=== PATIENT | male | born 1950 | race Caucasian/White ===

== ENCOUNTER 2019-02-18 14:39 | Inpatient (IN) | payer MEDICARE, OTHER ==
--- NOTE | 2019-02-18 16:20 | ED ---
Lower Extremity - HPI Summary HPI Summary: The patient is a 68 y/o M presenting to [facility] with discolorations of the toes on bilateral feet onset over the last few days. He reports that he was referred by his PCP to come here for his symptoms. He has small blueish-purple petechial spots on the right great and second toes and the left great toe. He has chronic numbness in the feet secondary to DM with neuropathy that isnt worse than usual. He denies fevers, chills, or other rashes on the body. He endorses intermittent episodes of mild CP but no palpitations. No known trauma to feet. Not currently in pain. PMHx: 4x CA, carotid surgery January 2019, aortic aneurysm, leaky valve, CAD, DVT, HLD, HTN. Former smoker, occasional EtOH, no substance use, no IV drug use. Medications reviewed. Allergies noted. - History of Current Complaint Chief Complaint: EDDiabeticProb Stated Complaint: DIABETIC/TOES ARE TURNING BLUE PER PT Time Seen by Provider: 02/18/19 15:56 Hx Obtained From: Patient Mechanism Of Injury: Unknown Onset/Duration: Still Present Severity Initially: Mild Severity Currently: Moderate Pain Intensity: 0 Pain Scale Used: 0-10 Numeric Timing: Lasting Days Location: Is Discrete @ - bilateral toes Associated Signs And Symptoms: Positive: Other - CP; Negative: chills, body rash , palpitations. Negative: Fever Aggravating Factor(s): Nothing Alleviating Factor(s): Nothing - Allergies/Home Medications Allergies/Adverse Reactions: Allergies Allergy/AdvReac Type Severity Reaction Status Date / Time RONAK Inhibitors Allergy Unknown Verified 12/09/18 11:27 Reaction Details acetaminophen Allergy Anaphylatic Verified 12/09/18 11:27 [From Darvocet-N 100] Shock meperidine [From Demerol] Allergy Nausea Verified 12/09/18 11:28 metformin Allergy Nausea Verified 12/09/18 11:27 propoxyphene Allergy Anaphylatic Verified 12/09/18 11:27 [From Darvocet-N 100] Shock simvastatin [From Zocor] Allergy Unknown Verified 12/09/18 11:27 Reaction Details Home Medications: Home Medications Insulin GLARGINE(*) [Lantus(*)] 50 units SUBCUT BEDTIME 02/18/19 [History Confirmed 02/18/19] Insulin LISPRO* [HumaLOG*] 10 units SUBCUT TID AC 02/18/19 [History Confirmed ] LORazepam TAB(*) [Ativan 0.5 MG TAB (*)] 0.5 mg PO BID PRN 02/18/19 [History Confirmed 02/18/19] Losartan TAB* [Cozaar TAB*] 50 mg PO DAILY 02/18/19 [History Confirmed 02/18/19] Metoprolol Succinate XL TAB* [Toprol XL TAB*] 50 mg PO DAILY 02/18/19 [History Confirmed 02/18/19] Mometasone NASAL (NF) [Nasonex (NF)] 2 spray BOTH NARES DAILY PRN 02/18/19 [ History Confirmed 02/18/19] Niacin ER CAP* [Niaspan ER CAP*] 500 mg PO BEDTIME 02/18/19 [History Confirmed 02/18/19] Omeprazole CAP (NF) [Prilosec CAP* 20 MG] 20 mg PO DAILY 02/18/19 [History Confirmed 02/18/19] Silodosin(NF) [Rapaflo(NF)] 8 mg PO DAILY 02/18/19 [History Confirmed 02/18/19] Tamsulosin CAP* [Flomax CAP*] 0.4 mg PO DAILY 02/18/19 [History Confirmed ] PMH/Surg Hx/FS Hx/Imm Hx Endocrine/Hematology History: Reports: Hx Diabetes Denies: Hx Anticoagulant Therapy, Hx Thyroid Disease, Hx Anemia Cardiovascular History: Reports: Hx Aneurysm, Hx Angina, Hx Coronary Artery Disease, Hx Deep Vein Thrombosis, Hx Hypercholesterolemia, Hx Hypertension, Hx Myocardial Infarction, Other Cardiovascular Problems/Disorders - BYPASS X3, aortic aneurysm, cartoid surgery Denies: Hx Pacemaker/ICD, Hx Valvular Heart Disease Respiratory History: Denies: Hx Asthma, Hx Chronic Bronchitis, Hx Chronic Obstructive Pulmonary Disease (COPD), Hx Pneumonia, Hx Sleep Apnea, Other Respiratory Problems/ Disorders - DENIES GI History: Reports: Hx Hiatal Hernia Denies: Hx Crohn's Disease, Hx Diverticulosis, Hx Gall Bladder Disease, Hx Gastroesophageal Reflux Disease, Hx Irritable Bowel, Hx Ulcer History: Reports: Hx Kidney Stones Denies: Hx Renal Disease - KIDNEY STONES Musculoskeletal History: Denies: Hx Arthritis, Hx Back Problems, Hx Gout Sensory History: Reports: Hx Contacts or Glasses Denies: Hx Hearing Aid Opthamlomology History: Reports: Hx Contacts or Glasses Neurological History: Reports: Other Neuro Impairments/Disorders - neuropathy Denies: Hx Headaches, Hx Migraine, Hx Seizures Psychiatric History: Denies: Hx Anxiety, Hx Depression, Hx Panic Disorder, Hx Post Traumatic Stress Disorder, Hx Suicide Attempt, Hx Substance Abuse - Cancer History Cancer Type, Location and Year: Family history Hx Chemotherapy: No - Surgical History Surgical History: Yes Surgery Procedure, Year, and Place: TRIPLE BYPASS , CARDIAC STENTS X3, AAA REPAIR, Hernia repair X2 Hx Anesthesia Reactions: No Infectious Disease History: No Infectious Disease History: Denies: Hx Hepatitis, Hx Human Immunodeficiency Virus (HIV), Hx Shingles, Hx Tuberculosis, Traveled Outside the [place] in Last 30 Days - Family History Known Family History: Positive: Cardiac Disease, Hypertension, Diabetes - Social History Alcohol Use: Occasionally Substance Use Type: Reports: None Smoking Status (MU): Former Smoker Review of Systems Negative: Fever, Chills Positive: Chest Pain - intermittent, mild. Negative: Palpitations Positive: Other - blue/purple spots on toes bilateral feet. Negative: Rash All Other Systems Reviewed And Are Negative: Yes Physical Exam - Summary Physical Exam Summary: Constitutional: Well-developed, Well-nourished, Alert. (-) Distressed Skin: Warm, Dry. Multiple petechiae on the bilateral toes, Multiple purple papules worst on the right great toe, Good capillary refill, No warmth, tenderness, or swelling. HENT: Normocephalic; Atraumatic Eyes: Conjunctiva normal Neck: Musculoskeletal ROM normal neck. (-) JVD, (-) Stridor, (-) Tracheal deviation Cardio: Rhythm regular, rate normal, Heart sounds normal; Intact distal pulses; Radial pulses are 2+ and symmetric. (-) Murmur Pulmonary/Chest wall: Effort normal. (-) Respiratory distress, (-) Wheezes, (-) Rales Abd: Soft, (-) tenderness, (-) Distension, (-) Guarding, (-) Rebound Musculoskeletal: (-) Edema Lymph: (-) Cervical adenopathy Neuro: Alert, Oriented x3 Psych: Mood and affect Normal Triage Information Reviewed: Yes Vital Signs On Initial Exam: Initial Vitals Temp Pulse Resp BP Pulse Ox 97.8 F 76 16 147/73 98 02/18/19 14:41 02/18/19 14:41 02/18/19 14:41 02/18/19 14:41 02/18/19 14:41 Vital Signs Reviewed: Yes Procedures - Sedation Patient Received Moderate/Deep Sedation with Procedure: No Diagnostics - Vital Signs Vital Signs Temp Pulse Resp BP Pulse Ox 02/18/19 14:41 97.8 F 76 16 147/73 98 - Laboratory Result Diagrams: 02/18/19 16:27 02/18/19 16:27 Lab Statement: Any lab studies that have been ordered have been reviewed, and results considered in the medical decision making process. - Radiology CXR Radiology Interpretation Completed By: Radiologist Summary of Radiographic Findings: Impression: No acute cardiopulmonary process by radiograph. ED physician has reviewed this imaging report. - EKG 1623 Cardiac Rate: NL - 71 bpm EKG Rhythm: Sinus Rhythm Summary of EKG Findings: An 1623 reveals sinus rhythm at 71 bpm. LBBB. No STEMI. ED physician has reviewed and interpreted this EKG. Re-Evaluation - Re-Evaluation First Eval Re-Evaluation Time: 20:00 Comment: We discussed results and plan for admission. Lower Extremity Course/Dx - Course Course Of Treatment: Patient is here with discoloration of his bilateral feet. Patient had an endarterectomy on [facility] this year. Patient has a known bowel disease cannot remember what it was. Patient's lesions look like petechiae and possible Janeway lesions. Patient had no identifiable Osler nodes. Patient has had chills with no fever. Patient has a murmur at baseline. Patient had an elevated ESR. Patient had blood culture sent. Given patient's two minor criteria for endocarditis with a rash that is consistent with it, patient is admitted to the hospital for echocardiogram in the morning. - Diagnoses Provider Diagnoses: Hypoglycemia, Petechial rash - Physician Notifications Discussed Care Of Patient With: Rj Hernandez - hospitalist Time Discussed With Above Provider: 19:55 Instructed by Provider To: Other - I discussed the patient's case with Dr. Hernandez , who accepts the patient for admission. Discharge ED - Sign-Out/Discharge Documenting (check all that apply): Patient Departure - Patient accepted for admission by Dr. Hernandez. - Discharge Plan Condition: Stable Disposition: ADMITTED TO [facility] Referrals: Lonnie Black MD [Primary Care Provider] - - Billing Disposition and Condition Condition: STABLE Disposition: Admitted to [facility] - Attestation Statements Document Initiated by Sabrina: Yes Documenting Scribe: Roxi Shahid Provider For Whom Sabrina is Documenting (Include Credential): Dr. Brandon Verde MD Scribe Attestation: Roxi Meraz, scribed for Dr. Brandon Verde MD on 02/18/19 at 2112. Scribe Documentation Reviewed: Yes Provider Attestation: The documentation as recorded by the Roxi wagner accurately reflects the service I personally performed and the decisions made by me, Dr. Brandon Verde MD Status of Scribe Document: Viewed
[2019-02-18 16:42] LABS: ABS Basophils 0.1 10^3/ul (0-0.2); ABS Eosinophils 0.3 10^3/ul (0-0.6); ABS Lymphocytes 0.8 10^3/ul (1.0-4.8); ABS Monocytes 0.4 10^3/ul (0-0.8); ABS Neutrophils 6.1 10^3/ul (1.5-7.7); Eosinophil % 3.8 %; Hematocrit 34 % (42-52); Hemoglobin 11.8 g/dL (14.0-18.0); Mean Corpuscular HGB Conc 35 g/dL (31-36); Mean Corpuscular Hemoglobin 29 pg (27-31); Mean Corpuscular Volume 83 fL (80-94); Mean Platelet Volume 8.4 fL (7.4-10.4); Platelet Count 265 10^3/uL (150-450); Red Blood Count 4.08 10^6 /uL (4.18-5.48); Red Cell Distribution Width 17 % (10-15); White Blood Count 7.6 10^3/uL (3.5-10.8)
[2019-02-18 16:48] LABS: INR 0.97 (0.82-1.09)
[2019-02-18 17:02] LABS: Albumin 3.6 g/dL (3.2-5.2); Albumin/Globulin Ratio 1.2 (1-3); BUN/Creatinine Ratio 23.1 (8-20); Calcium 8.9 mg/dL (8.6-10.3); EGFR African American 40.4 (>60); EGFR Non-African American 33.4 (>60); Globulin 2.9 g/dL (2-4); Potassium 4.4 mmol/L (3.5-5.0); Total Bilirubin 0.5 mg/dL (0.2-1.0); Total Protein 6.5 g/dL (6.4-8.9); Troponin I 0.02 ng/mL (<0.03)
[2019-02-18 19:30] LABS: Erythrocyte Sed Rate 58 mm/Hr (0-19)
[2019-02-18] MEDS ORDERED: Vancomycin(*) 1,500 MG in NS 0.9% 250 ML* 250 ML IVPB ONE (21:30)
[2019-02-18] MEDS ORDERED: Piperacillin/Tazobac ADVAN(*) 3.375 GM in NS 0.9% 100 ML* 100 ML IVPB ONE (21:31)
[2019-02-18] MEDS ORDERED: Acetaminophen TAB* 325 MG PO PRN (21:32)
[2019-02-18] MEDS ORDERED: Ondansetron INJ* 2 MG/ML VIAL IV PRN (21:32)
[2019-02-18] MEDS ORDERED: LORazepam TAB(*) 0.5 MG PO PRN (21:35)
[2019-02-18] MEDS ORDERED: Fluticasone NASAL SPRAY 50MCG* 16 gm SPRAY BTL BOTH NARES PRN (21:35)
[2019-02-18] MEDS ORDERED: Dextrose 50% VIAL 50 ml IV PUSH PRN (21:37)
[2019-02-18] MEDS ORDERED: Vancomycin per Pharmacy* NOTE FOLLOW UP SCH (22:00)
[2019-02-18] MEDS ORDERED: Zosyn per Pharmacy* NOTE FOLLOW UP SCH (22:00)
[2019-02-18 22:24] LABS: Troponin I 0.03 ng/mL (<0.03)
[2019-02-18 22:38] LABS: Urine Appearance Cloudy; Urine Bilirubin Negative (Negative); Urine Blood Negative (Negative); Urine Color Yellow; Urine Glucose 1+(50 mg/dL) (Negative); Urine Ketones Negative (Negative); Urine Nitrite Negative (Negative); Urine Protein 2+(100 mg/dL) (Negative); Urine Specific Gravity 1.011 (1.010-1.030); Urine Urobilinogen Negative (Negative)
[2019-02-18 22:49] LABS: Urine Bacteria Absent (Absent); Urine Red Blood Cell 1+(3-5/hpf) (Absent); Urine White Blood Cell 3+(>20/hpf) (Absent)
--- NOTE | 2019-02-18 23:21 | HP ---
HISTORY AND PHYSICAL: DATE OF ADMISSION: 02/18/19 PRIMARY CARE PHYSICIAN: Dr. Black. PROVIDER: Jovanna Diaz NP ATTENDING PHYSICIAN: Dr. Hernandez.* (DICTATED BY JOVANNA DIAZ NP) CHIEF COMPLAINT: Red spots on his toes. HISTORY OF PRESENT ILLNESS: This is a 68-year-old male with past medical history significant for diabetes type 2 with neuropathy, RI x4, and DVT who came to the emergency room per suggestion of his PCP due to red spots on his toes. On 01/01/19, the patient had underwent a right endarterectomy. Since then he has had 3 to 4 headaches which is unusual. His appetite in the past week has been poor. He has become short of breath when bending over. Other significant symptoms include left-sided chest pain that is intermittent that he describes as pinpricks with no other radiating pain, flushing, or sweating though he says that symptom has been present since his first heart attack. He also reports feeling lightheaded with bending, turning, or walking any short distance; however, that has been present since before his endarterectomy. Also of note, the patient has seen Dr. Wright in the office recently for BPH and pain in his urine. Urine had been cloudy, strong in odor, and he had been urinating frequently. A urinalysis had been performed and Dr. Wright had called in an antibiotic for him today, which he had not been able to shrimp picker prior to coming to the emergency room. In the emergency room, he had his blood drawn and chest x-ray performed. When I evaluated him at the bedside, he was sitting up in the bed in no acute distress. PAST MEDICAL HISTORY: Diabetes type 2 with neuropathy, RI x4, aortic aneurysm, coronary artery disease, arthritis, Lyme disease, "leaky valve though he is unsure as to which one", DVT, hyperlipidemia, hypertension, hiatal hernia, inguinal hernia, umbilical hernia, kidney stones, BPH, GERD. PAST SURGICAL HISTORY: Inguinal hernia repair x2, right endarterectomy, AAA repair, triple bypass, 3 stentings. HOME MEDICATIONS: 1. Lorazepam 0.5 mg p.o. b.i.d. p.r.n. 2. Mometasone 2 sprays both nares daily p.r.n. 3. Amlodipine 5 mg p.o. daily. 4. Paroxetine 20 mg p.o. daily. 5. Bupropion XL 3000 mg p.o. daily. 6. Silodosin 8 mg p.o. daily. 7. Tamsulosin 0.4 mg p.o. daily. 8. Fish oil 1 cap p.o. daily. 9. Multivitamin 1 cap p.o. daily. 10. Insulin lispro 10 units subcutaneously t.i.d. a.c. 11. Insulin glargine 50 units subcu at bedtime. 12. Metoprolol succinate 50 mg p.o. daily. 13. Losartan 50 mg p.o. daily. 14. Clopidogrel 75 mg p.o. daily. 15. Atorvastatin 40 mg p.o. daily. 16. Aspirin 81 mg p.o. daily. ALLERGIES: RONAK INHIBITORS, MEPERIDINE, METFORMIN, PROPOXYPHENE, and SIMVASTATIN. FAMILY HISTORY: Father had lung cancer. Two sisters, one had lung cancer and one had stroke. His mother had heart disease. SOCIAL HISTORY: Quit smoking 20 years ago. Denies any alcohol or recreational substance use. 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 He is and has 2 children. REVIEW OF SYSTEMS: A 12-point system review was performed which was positive for urinary frequency, pain, strong odor, and cloudy urine. Also positive for shortness of breath with bending over; lightheadedness with bending, turning, and walking short distances; headaches; intermittent pinpricky chest pain; feeling more cold in the past few months; poor appetite within the past week. Pertinent negatives: No nausea or vomiting or diarrhea. PHYSICAL EXAMINATION GENERAL: This is a well-developed, obese gentleman seen staying up in bed, in no acute distress. VITAL SIGNS: 97.8 Fahrenheit, 71 pulse, 13 resp, 95% oxygen on room air, and 155/95 blood pressure. HEENT: Eyes; conjunctivae pink and moist. Scleral icterus noted. ENT: Oropharynx clear. Mucous membranes moist. NECK: Supple. RESPIRATORY: Lung sounds clear throughout bilaterally on room air. CARDIAC: S1 and S2 present. Heart rate regular, stenotic murmur heard equally in the second intercoastal to bilateral sternal borders. Positive carotid bruits bilaterally. No gallops or rubs appreciated. ABDOMEN: Large, soft, nontender, and nondistended with positive bowel sounds x4. MUSCULOSKELETAL: No clubbing of the digits; however, toes to bilateral feet have small areas of petechiae. First 3 toes on the right are deep red. SKIN: Other than toes as mentioned above, no rashes or open areas appreciated. NEUROLOGIC: No focal deficits. Neuropathy to left great toe and right toes 1 through 3. PSYCH: Alert and oriented x3. Thought content organized. LABORATORY DATA: RBC 4.08, hemoglobin 11.8, hematocrit 34, RDW 17. Sodium 31 , chloride 97, BUN 46, creatinine 1.99, BUN and creatinine ratio 23.1, glucose 369, B- natriuretic peptide 110, troponin 0.02. Reflexive culture of urine done on 02/11/19 showed positive for Enterococcus faecalis. DIAGNOSTIC STUDIES: EKG showed sinus rhythm with T-waves, depression in multiple leads and right bundle branch block. Chest x-ray showed no acute cardiopulmonary process by radiograph. ASSESSMENT AND PLAN: My impression is this is a 68-year-old male with the past medical history significant for recent endarterectomy, diabetes type 2, and myocardial infarction x4 who is admitted on 02/18/19 for endocarditis. 1. Endocarditis. Awaiting blood cultures; however, due to symptomatology, recent endarterectomy, and presence of Janeway spots to his bilateral toes we are treating this as endocarditis. I have ordered vancomycin and Zosyn to cover not only for the endocarditis but also for his urinary tract infection. We will place the patient on telemetry monitoring and do an echocardiogram in the a.m. 2. Urinary tract infection. As detected by Dr. Wright in the office, urine is growing Enterococcus faecalis. We will treat with a mixture of Zosyn and vancomycin that we are giving him for his endocarditis. The patient is symptomatic. 3. Diabetes type 2. Blood sugars were elevated in the ER. We will order fingersticks a.c. and h.s. to continue his Lantus with sliding scale coverage with Lispro insulin. 4. History of coronary artery disease and myocardial infarction x4. The patient is not having any symptoms of acute coronary syndrome; however, troponin is 0.02, and we will continue to trend this. EKG shows no ST elevation. Continue baby aspirin, clopidogrel, atorvastatin, and metoprolol. 5. Hypertension. Blood pressures in the emergency room have been elevated in the 140s to 150s consistently. We will continue amlodipine, losartan, and metoprolol. Depending on how he is doing tomorrow, I would recommend titration of medication. 6. Hyperlipidemia. Continue atorvastatin. 7. Depression and anxiety. Continue bupropion and paroxetine. Continue lorazepam. 8. Benign prostatic hyperplasia. Continue silodosin and tamsulosin. 9. DVT prophylaxis. I have ordered Lovenox. 10. Code status is full code. DISPOSITION: Admit OBV to [facility]. CONDITION: Guarded. TIME SPENT: Time spent on the patient 60 minutes with half of that spent face- to- face. JOVANNA DIAZ, SENIOR CONSTRUCTION MANAGER [id number]/CPS #: [id number] MTDD
[2019-02-18] MEDS: NS 0.9% 1000 ML** 1,000 ML IV SCH (23:55)
[2019-02-19] MEDS: Enoxaparin(*) 40 MG/0.4 ML SYR SUBCUT SCH ×2 (00:06→22:10)
[2019-02-19] MEDS: ZOSYN 3.375 GM Q8H per EXTENDED INFUSION IVPB SCH ×4 (01:26→09:04)
[2019-02-19 01:31] LABS: Troponin I 0.03 ng/mL (<0.03)
[2019-02-19 04:28] LABS: ABS Eosinophils 0.4 10^3/ul (0-0.6); ABS Lymphocytes 1.5 10^3/ul (1.0-4.8); ABS Monocytes 0.5 10^3/ul (0-0.8); ABS Neutrophils 4.5 10^3/ul (1.5-7.7); Eosinophil % 5.3 %; Hematocrit 30 % (42-52); Hemoglobin 11.1 g/dL (14.0-18.0); Lymphocyte % 22.1 %; Mean Corpuscular HGB Conc 37 g/dL (31-36); Mean Corpuscular Hemoglobin 31 pg (27-31); Mean Corpuscular Volume 85 fL (80-94); Mean Platelet Volume 8.1 fL (7.4-10.4); Nucleated Red Blood Cells % 0.3; Platelet Count 248 10^3/uL (150-450); Red Blood Count 3.53 10^6 /uL (4.18-5.48); Red Cell Distribution Width 16 % (10-15); White Blood Count 6.9 10^3/uL (3.5-10.8)
[2019-02-19 04:42] LABS: BUN/Creatinine Ratio 20.6 (8-20); Calcium 8.5 mg/dL (8.6-10.3); EGFR African American 35.4 (>60); EGFR Non-African American 29.3 (>60)
[2019-02-19 04:49] LABS: Potassium 4.1 mmol/L (3.5-5.0)
[2019-02-19 04:52] LABS: Troponin I 0.03 ng/mL (<0.03)
[2019-02-19] MEDS ORDERED: Perflutren Lipid Microsphere* 3 ML VIAL ONE (08:35)
[2019-02-19] MEDS ORDERED: Losartan TAB* 25 MG PO SCH (09:00)
[2019-02-19 09:01] LABS: C Reactive Protein 4.07 mg/L (<8.01)
[2019-02-19] MEDS: amLODIPine TAB* 5 MG PO SCH (09:01)
[2019-02-19] MEDS: BuPROPion XL* 300 MG TAB.XL PO SCH (09:01)
[2019-02-19] MEDS: PARoxetine HCL TAB* 20 MG PO SCH (09:01)
[2019-02-19] MEDS: Metoprolol Succinate XL TAB* 50 MG PO SCH (09:01)
[2019-02-19] MEDS: Multivitamins/Minerals TAB PO SCH (09:01)
[2019-02-19] MEDS: Clopidogrel TAB* 75 MG PO SCH (09:01)
[2019-02-19] MEDS: Tamsulosin CAP* 0.4 MG PO SCH (09:01)
[2019-02-19] MEDS: Atorvastatin* 40 MG TAB PO SCH (09:01)
[2019-02-19] MEDS: Aspirin 81 mg CHEW TAB* 81 MG TAB.CHEW PO SCH (09:01)
[2019-02-19] MEDS: Insulin LISPRO* 1 UNITS UNIT SUBCUT SCH ×4 (09:02→22:10)
[2019-02-19] MEDS: SILODOSIN 8 MG PO SCH (09:03)
--- NOTE | 2019-02-19 11:17 | ECHO ---
*[facility]* [place] [address] Fax #: [phone] Transthoracic Echocardiogram Patient: Will Martinez : 1950 Study Date: 02/19/2019 Age: 68 Gender: M HR: 72 bpm Height: 64 in /162.6 cm BSA: 2.04 m^2 Weight: 219.5 lb /99.8 kg BMI: 37.8 kg/m^2 *Special Education Curriculum Specialist: * Lynne Márquez RDCS RN *Referring Physician: * Hattie Diaz *Reading Physician: * Don Bahena MD Indications: Endocarditis Acute/subacute bacterial. History: Coronary artery disease. OH x 4. DVT. AAA repair. Right endarterectomy. Risk factors: Hypertension. Diabetes mellitus. Dyslipidemia. Labs, prior tests, procedures, and surgery: Coronary artery bypass grafting. Conclusions Summary: - Left ventricle: The cavity size is normal. Septal wall thickness is moderately increased. Systolic function is mildly reduced. The estimated ejection fraction is 45-50%. - Regional wall motion abnormality: Akinesis of the basal inferior myocardium; severe hypokinesis of the basal-mid inferolateral myocardium; moderate hypokinesis of the basal inferoseptal myocardium; mild hypokinesis of the mid inferoseptal, mid-apical inferior, and apical septal myocardium. - Right ventricle: The cavity size is normal. Systolic function is normal. - Ventricular septum: Ventricular septal wall motion has a postoperative appearance. - Left atrium: The atrium is mildly dilated. - Aortic valve: The findings are consistent with moderate stenosis. There is mild regurgitation. The peak systolic velocity is 3 m/sec. The mean systolic gradient is 23.0 mm Hg. The valve area by the velocity-time integral method is 1.07 cm^2. - Pulmonary arteries: Systolic pressure can not be accurately estimated. - No obvious endocarditis on fair quality transthoracic imaging. Recommendations: Compared to prior study from 12/2018, more wall segments were noted to be dysfunctional but this may have been related to definity use on this study. Study data: Transthoracic echocardiogram. Procedure: Transthoracic echocardiography was performed. Image quality was fair. The study was technically limited due to body habitus. Intravenous Definity 2 ml was administered to enhance endocardial borders. Complete 2D, spectral Doppler, and color flow Doppler. Location: Bedside. Patient status: Inpatient. Patient room number: 441-01. Rhythm: Normal sinus rhythm with PVCs and PACs. Findings Left ventricle: The cavity size is normal. Septal wall thickness is moderately increased. Systolic function is mildly reduced. The estimated ejection fraction is 45-50%. Regional wall motion abnormalities: Akinesis of the basal inferior myocardium; severe hypokinesis of the basal-mid inferolateral myocardium; moderate hypokinesis of the basal inferoseptal myocardium; mild hypokinesis of the mid inferoseptal, mid-apical inferior, and apical septal myocardium. The remaining myocardial segments have high normal wall motion raising the LVEF Doppler parameters are consistent with abnormal left ventricular relaxation (grade 1 diastolic dysfunction). Right ventricle: The cavity size is normal. Systolic function is normal. Ventricular septum: Ventricular septal wall motion has a postoperative appearance. Left atrium: The atrium is mildly dilated. Right atrium: Not well visualized. The atrium is mildly dilated. Mitral valve: The mitral valve annulus appears calcified. The leaflets are mildly thickened. There is no evidence of a vegetation. There is no evidence of stenosis. There is mild regurgitation. Aortic valve: The valve is trileaflet. The leaflets are moderately thickened and moderately calcified. There is no evidence of a vegetation. The findings are consistent with moderate stenosis. There is mild regurgitation. Tricuspid valve: The leaflets are normal thickness. There is no evidence of a vegetation. There is no evidence of stenosis. There is trace regurgitation. Pulmonic valve: The valve is structurally normal. There is no evidence of a vegetation. There is no evidence of stenosis. There is trace regurgitation. Aorta: Ascending aorta: The ascending aorta is not dilated. Aortic arch: The aortic arch is not dilated. The aortic root appears normal. Pericardium: There is no pericardial effusion. Pulmonary arteries: The main pulmonary artery is normal-sized. Systolic pressure can not be accurately estimated. Systemic veins: Inferior vena cava: The vessel is mildly dilated. There is (< 50%) respiratory change in the IVC dimension. Measurements Left ventricle Value Ref Aortic valve Value Ref HUANG, LAX 4.4 cm 4.2 - 5.8 Cheli diam, ED 1.9 cm ---- ESD, LAX 3.9 cm 2.5 - 4.0 Cheli diam/bsa, ED 0.9 cm/m^2 ---- FS, LAX (L) 11 % 25 - 43 Peak v, S 3 m/sec ---- PW, ED 0.8 cm 0.6 - 1.0 VTI, S 65.2 cm ---- IVS/PW, ED 1.78 Mean grad, S 23.0 mm Hg ---- E', lat cheli, TDI (L) 8.7 cm/sec >=10.0 Peak grad, S 37.0 mm Hg - --- E/e', lat cheli, 11 LVOT/AV, VTI ratio 0.31 ---- TDI REGLA, VTI 1.07 cm^2 ---- E', med cheli, TDI (L) 6.3 cm/sec >=7.0 REGLA, Vmax 1.12 cm^2 - --- E/e', med cheli, 15 AR peak v 3.63 m/sec ---- TDI AR PHT 569 ms ---- E', avg, TDI 7.5 cm/sec AR peak grad 53 mm Hg ---- E/e', avg, TDI 12 <=14 Mitral valve Value Ref LVOT Value Ref Peak E 0.93 m/sec ---- Diam, S 2.10 cm Peak A 1.26 m/sec ---- Area 3.5 cm^2 Decel time 296 ms ---- Peak mily, S 0.97 m/sec PHT 111 ms ---- VTI, S 20.1 cm Mean grad, D 2.0 mm Hg ---- Mean grad, S 2 mm Hg Peak grad, D 7.0 mm Hg ---- SV 62 ml Peak E/A ratio 0.7 ---- SV/bsa 30 ml/m^2 MVA, PHT 2.0 cm^2 ---- Ventricular septum Value Ref Pulmonic valve Value Ref IVS, ED (H) 1.4 cm 0.6 - 1.0 Peak v, S 1.44 m/sec ---- Peak grad, S 8.0 mm Hg ---- Right ventricle Value Ref HUANG, LAX 3.0 cm Aortic root Value Ref HUANG minor ax, A4C 2.9 cm 1.9 - 3.5 Root diam 2.9 cm <4.2 mid Ascending aorta Value Ref Left atrium Value Ref AAo AP diam, S 3.3 cm ---- AP dim, ES 3.80 cm 3.00 - 4.00 Aortic arch Value Ref ML dim, A4C 4.5 cm Arch diam 2.8 cm ---- SI dim, A4C 5.5 cm Vol/bsa, ES, 1-p 29 ml/m^2 12 - 37 Decending aorta Value Ref A4C Yolanda peak mily 1.44 m/sec ---- Vol/bsa, ES, A/L 32 ml/m^2 16 - 34 Inferior vena cava Value Ref Right atrium Value Ref Diam 2.3 cm ---- ML dim, ES, A4C 4.1 cm 2.6 - 4.4 SI dim, ES, A4C (H) 5.6 cm 3.4 - 5.3 Estimated RAP 15 mm Hg Legend: (L) and (H) aaron values outside specified reference range. Prepared and electronically signed by Don Bahena MD 02/19/2019 11:15
--- NOTE | 2019-02-19 12:29 | CONS ---
CONSULTATION REPORT: DATE OF CONSULT: 02/19/19 REQUESTING PHYSICIAN: Dr. Ruby. CONSULTING SERVICE: Infectious Disease. REASON FOR CONSULT: Elevated sedimentation rate, heart murmur, rash on his toes. IMPRESSION: 1. Petechiae on the tips of the bilateral great toes and apparently a blackish discoloration, which has now resolved. These are not Janeway lesions. He does not have splinter hemorrhage or subconjunctival hemorrhage. These could be stigmata of endocarditis or embolization from intravascular process. They would not necessarily have to be infectious. He has not had an acute or subacute prodrome to suggest infection, his CRP is 4, and he has had no fever here. He does have what looks like worsening renal function, baseline in November of .7, his creatinine now is 2.2. This could also be from local trauma to the tips of the toes in the setting of mild vascular disease. 2. Diabetes with neuropathy. 3. Vascular disease, recent endarterectomy and decreased dorsalis pedis pulse on the right. 4. Coronary artery disease, history of aortic aneurysm, and valvular disease. RECOMMENDATIONS: Stop the Zosyn. Continue vancomycin while awaiting blood cultures and echocardiogram is pending. If the blood cultures are negative, endocarditis drops essentially off the list. Other considerations are emboli in the setting of vascular disease and we would check an YOAN. HISTORY OF PRESENT ILLNESS: This is a 68-year-old man with coronary artery disease, peripheral vascular disease, recent endarterectomy, recent treatment for urinary tract infection due to enterococcus as an outpatient; has been off antibiotics for over a week now and was noted to have some reddish spots on his toes and some black discoloration of the toes. Because of the changes on his toes, he came to the hospital yesterday. He has been afebrile here. CRP is 4. Sed rate is 50. Recent treatment for prostatitis as an outpatient; he cannot remember which antibiotic, but took it for a couple of weeks. He has been off it for a week. He was to have restarted it recently per Dr. Wright's direction, but he has not done that yet. His white count here was 7. His initial creatinine was 1.9. Today, it is 2.2. Urinalysis showed leukocyte esterase and white cells, no blood. A urine culture from 02/11/19 grew enterococcus. His blood and urine cultures here are pending. He does not have any pain in any place including his toes, though he does have some neuropathy. PAST MEDICAL HISTORY: 1. Coronary artery disease and history of DE. 2. Aortic aneurysm. 3. Diabetes type 2, complicated by neuropathy. 4. Osteoarthritis. 5. Valvular heart disease. 6. DVT. 7. Hyperlipidemia. 8. Hypertension. 9. Hiatal hernia. 10. Inguinal hernia. 11. Umbilical hernia. 12. Nephrolithiasis. 13. Benign prostatic hypertrophy. 14. Gastroesophageal reflux disease. PAST SURGICAL HISTORY: 1. Status post right inguinal hernia repair, twice. 2. Status post right carotid endarterectomy. 3. Abdominal aortic aneurysm repair. 4. Coronary artery bypass grafting. 5. PCI. ALLERGIES: RONAK INHIBITOR, MEPERIDINE, METFORMIN, PROPOXYPHENE, SIMVASTATIN. MEDICATIONS: 1. Tylenol. 2. Amlodipine. 3. Aspirin. 4. Lipitor. 5. Bupropion. 6. Plavix. 7. Enoxaparin. 8. Fluticasone nasal spray. 9. Insulin glargine. 10. Losartan. 11. Metoprolol. 12. Zosyn 3.375 g IV every 8 hours. 13. Rapaflo. 14. Tamsulosin. 15. Vancomycin 1500 mg daily. SOCIAL HISTORY: He is retired from [employer] in [employer]. Lives with his . He is a past smoker. FAMILY HISTORY: Father with lung cancer. Mother had coronary artery disease. REVIEW OF SYSTEMS: All negative, except as noted above to a 12-point review. PHYSICAL EXAM: Vital Signs: Temperature is 36.3, heart rate 78, respiratory rate 16, blood pressure 146/60, oxygen saturation 97% on room air. In general, he is awake, not in distress. Neurologic: He is oriented x3, follows all commands. Sensation is decreased to light touch in both feet. HEENT: There is no conjunctival hemorrhage. Oropharynx without lesions. Neck is supple without mass. Heart is regular rate and rhythm with systolic murmur. Lungs are clear to auscultation. Abdomen: Soft, nontender, nondistended. There is no rebound. Skin: There is no rash or splinter hemorrhage. There are petechiae on the bilateral tips of the great toes and second toes. Musculoskeletal: There is no spine tenderness to palpation or joint synovitis. Vascular: There is 2+ right dorsalis pedis; on the left I cannot palpate the dorsalis pedis, but both feet are warm with brisk capillary refill. LABORATORY DATA: White blood cell count 6, hemoglobin 11, platelets 248. Creatinine is 2.2. CRP 4. Please see impression and recommendations outlined above, which I have discussed with Dr. Ruby. [id number]/[facility] #: [id number] [facility] CENTERClarissa
[2019-02-19] MEDS: NS 0.9% 1000 ML** 1,000 ML IV SCH (12:43)
[2019-02-19] MEDS ORDERED: Vancomycin(*) 1,500 MG in NS 0.9% 250 ML* 250 ML IVPB SCH (15:00)
--- NOTE | 2019-02-19 16:54 | PN ---
Subjective Date of Service: 02/19/19 Interval History: Pt feels well, denies pain Objective Active Medications: Acetaminophen (Tylenol Tab*) 650 mg PO Q4H PRN PRN Reason: MILD PAIN or TEMP > 100.4 Amlodipine Besylate (Norvasc Tab*) 5 mg PO DAILY [facility] Last Admin: 02/19/19 09:01 Dose: 5 mg Aspirin (Aspirin 81 Mg Chew Tab*) 81 mg PO DAILY [facility] Last Admin: 02/19/19 09:01 Dose: 81 mg Atorvastatin Calcium (Lipitor*) 40 mg PO DAILY [facility] Last Admin: 02/19/19 09:01 Dose: 40 mg Bupropion HCl (Bupropion Xl*) 300 mg PO DAILY [facility] Last Admin: 02/19/19 09:01 Dose: 300 mg Clopidogrel Bisulfate (Plavix Tab*) 75 mg PO DAILY [facility] Last Admin: 02/19/19 09:01 Dose: 75 mg Dextrose (Dextrose 50% Vial 50 Ml*) 25 ml IV PUSH .FOR FS < 60 - SS PRN PRN Reason: FS < 60 Enoxaparin Sodium (Lovenox(*)) 40 mg SUBCUT Q24H [facility] Last Admin: 02/19/19 00:06 Dose: 40 mg Fluticasone Propionate (Flonase Nasal [place] 50mcg*) 2 spray BOTH NARES DAILY PRN PRN Reason: Allergy Symptoms Sodium Chloride (Ns 0.9% 1000 Ml) 1,000 mls @ 75 mls/hr IV PER RATE [facility] Last Admin: 02/19/19 12:43 Dose: 75 mls/hr Vancomycin HCl 1,500 mg/ (Sodium Chloride) 250 mls @ 166.667 mls/hr IVPB Q24H [facility] Last Admin: 02/19/19 15:20 Dose: 166.667 mls/hr Insulin Glargine (Lantus(*)) 50 units SUBCUT BEDTIME [facility] Insulin Human Lispro (Humalog*) 0 units SUBCUT ACHS [facility]; Protocol Last Admin: 02/19/19 12:41 Dose: 12 units Lorazepam (Ativan Tab(*)) 0.5 mg PO BID PRN PRN Reason: ANXIETY Losartan Potassium (Cozaar Tab*) 50 mg PO DAILY [facility] Last Admin: 02/19/19 09:01 Dose: 50 mg Metoprolol Succinate (Toprol Xl Tab*) 50 mg PO DAILY [facility] Last Admin: 02/19/19 09:01 Dose: 50 mg Multivitamins/Minerals (Theragran/Minerals Tab*) 1 tab PO DAILY [facility] Last Admin: 02/19/19 09:01 Dose: 1 tab Ondansetron HCl (Zofran Inj*) 4 mg IV Q4H PRN PRN Reason: NAUSEA/VOMITING Paroxetine HCl (Paxil Tab*) 20 mg PO DAILY [facility] Last Admin: 02/19/19 09:01 Dose: 20 mg Pharmacy Consult (Vancomycin Per Pharmacy*) 1 note FOLLOW UP .VANC PER PHARMACY [facility]; Protocol Pharmacy Profile Note (Vancomycin Trough Check) 1 note FOLLOW UP 1430 ONE Stop: 02/21/19 14:31 Silodosin (Rapaflo(Nf)) 8 mg PO DAILY [facility] Last Admin: 02/19/19 09:03 Dose: Not Given Tamsulosin HCl (Flomax Cap*) 0.4 mg PO DAILY [facility] Last Admin: 02/19/19 09:01 Dose: 0.4 mg Vital Signs - 8 hr 02/19/19 02/19/19 11:11 15:15 Temperature 97.2 F 98.2 F Pulse Rate 78 86 Respiratory 18 18 Rate Blood Pressure 118/53 130/66 (mmHg) O2 Sat by Pulse 95 95 Oximetry Oxygen Devices in Use Now: None Appearance: 68 yo m in nAD, aAOx3 Eyes: No Scleral Icterus, PERRLA Ears/Nose/Mouth/Throat: NL Teeth, Lips, Gums, Mucous Membranes Moist Neck: NL Appearance and Movements; NL JVP, Trachea Midline Respiratory: Symmetrical Chest Expansion and Respiratory Effort, Clear to Auscultation Cardiovascular: RRR, - - 3/6 TIM Abdominal: NL Sounds; No Tenderness; No Distention Lymphatic: No Cervical Adenopathy Extremities: No Edema, No Clubbing, Cyanosis Skin: No Nodules or Sclerosis, - - very faint petechiae on tips of all toes and dorsal aspect of 1st toes b/l Neurological: Alert and Oriented x 3, NL Muscle Strength and Tone Result Diagrams: 02/19/19 04:19 02/19/19 04:19 Microbiology and Other Data: Microbiology 02/18/19 16:27 Aerobic Blood Culture - Preliminary Blood Venous No Growth Day 1 Anaerobic Blood Culture - Preliminary No Growth Day 1 02/18/19 16:27 Aerobic Blood Culture - Preliminary Blood Venous No Growth Day 1 Anaerobic Blood Culture - Preliminary No Growth Day 1 Assess/Plan/Problems-Billing Assessment: 68 yo m s/p L CEA (01/01/19), mod-severe (under the care of Dr. Haywood), BPH (dx with enterococcus UTI 02/11/19, by Dr. Wright), DM2 -insulin dependent noted cold and blue toe tips on 02/18/19, called his MD who recommended for pt to come to ED - Patient Problems (1) Petechiae Comment: Very mild petechie on tips of all the toes and dorsal aspect of both 1st toes.As per pt's his toes "were blue" when he called his PCP. Denies pain , or feeling cold at the time and his toes were nevewr blue before. differential includes: trauma, vaculitis, Raynauld's, endocarditis. Appreciate ID's consult-awaiting blood cx, but endocarditis less likely. YOAN's checked and are WNL will check ANCA, SHELLY . (2) Acute kidney injury Comment: on CKD stage 3 with creat at 1.7 baseline cont iVF stop Zosyn, monitor Renal US consistent with medical renal disease (3) Diabetes Comment: uncontroled cont ISS, increase Lantus from 50 to 60 U QHS (4) UTI (urinary tract infection) Comment: E. faecalis noted on urine cx 02/11/19 will cont Vanc for now (5) DVT prophylaxis Comment: Lovenox Status and Disposition: OBV changed to inpatient, due to worsening renal failure pt will need to stay another day
[2019-02-19] MEDS ORDERED: Insulin GLARGINE(*) 1 UNITS UNIT SUBCUT SCH (23:00)
[2019-02-20] MEDS: NS 0.9% 1000 ML** 1,000 ML IV SCH (06:19)
[2019-02-20 07:05] LABS: BUN/Creatinine Ratio 18.4 (8-20); Calcium 8.6 mg/dL (8.6-10.3); EGFR African American 47.2 (>60); Potassium 3.8 mmol/L (3.5-5.0)
[2019-02-20] MEDS: Metoprolol Succinate XL TAB* 50 MG PO SCH (08:31)
[2019-02-20] MEDS: Tamsulosin CAP* 0.4 MG PO SCH (08:31)
[2019-02-20] MEDS: Aspirin 81 mg CHEW TAB* 81 MG TAB.CHEW PO SCH (08:31)
[2019-02-20] MEDS: Atorvastatin* 40 MG TAB PO SCH (08:31)
[2019-02-20] MEDS: PARoxetine HCL TAB* 20 MG PO SCH (08:31)
[2019-02-20] MEDS: Multivitamins/Minerals TAB PO SCH (08:31)
[2019-02-20] MEDS: Clopidogrel TAB* 75 MG PO SCH (08:31)
[2019-02-20] MEDS: amLODIPine TAB* 5 MG PO SCH (08:31)
[2019-02-20] MEDS: Insulin LISPRO* 1 UNITS UNIT SUBCUT SCH ×2 (08:32→12:23)
[2019-02-20] MEDS: SILODOSIN 8 MG PO SCH (08:41)
[2019-02-20] MEDS: BuPROPion XL* 300 MG TAB.XL PO SCH (08:41)
[2019-02-20 08:55] VITALS: BP 160/67
[2019-02-20] MEDS ORDERED: Loperamide CAP* 2 MG PO PRN (11:34)
--- NOTE | 2019-02-20 14:58 | DS ---
CC: Dr. Black; Dr. Moore; Dr. Haywood* DISCHARGE SUMMARY: DATE OF ADMISSION: 02/18/19 DATE OF DISCHARGE: 02/20/19 PRIMARY CARE PROVIDER: Dr. Black. DISPOSITION AT DISCHARGE: Home. CONDITION ON DISCHARGE: Stable. DISCHARGE DIAGNOSES: 1. Petechiae on bilateral toes, endocarditis ruled out. 2. Acute kidney injury on top of chronic renal insufficiency that is improving. SECONDARY DIAGNOSIS: History of enterococcus urinary tract infection, treated by Dr. Wright with ampicillin. The patient is not sure if he started taking the medication or not, but he is instructed to restart it if he has not done yet as previously prescribed by the urology office. DISCHARGE MEDICATIONS: The remaining medications are unchanged and include: 1. Lorazepam 0.5 mg b.i.d. p.r.n. 2. Bupropion XL 300 mg daily. 3. Rapaflo 8 mg daily. 4. Flomax 0.4 mg daily. 5. Paxil 20 mg daily. 6. Omeprazole 20 mg daily. 7. Hutchins-3 fatty acids 1 capsule daily. 8. Niaspan ER 500 mg at bedtime. 9. Nasonex nasal spray 2 sprays both nostrils daily. 10. Toprol-XL 50 mg daily. 11. Cozaar 50 mg daily. 12. Insulin lispro 10 units with each meal as previously taken. 13. Plavix 75 mg daily. 14. Lipitor 40 mg daily. 15. Aspirin 81 mg daily. 16. Amlodipine 5 mg daily. 17. Insulin glargine 50 units twice a day. 18. Ampicillin as previously prescribed by Dr. Wright. CONSULTATION DURING THE HOSPITAL STAY: Included Dr. Moore from Infectious Diseases. LABORATORY DATA AND STUDIES PERFORMED DURING THE HOSPITAL STAY: Included on , white blood cell count of 6.9, hemoglobin of 11.0, hematocrit of 30, platelets of 248. On 02/20/19, sodium of 139, potassium 3.8, chloride 108, carbon dioxide 24, BUN 32, creatinine 1.74. Microbiology tests showing blood cultures that were negative by the time of discharge. Transthoracic echocardiogram obtained on 02/19/19 showed EF of 45% to 50% with regional wall motion abnormality, moderate hypokinesis of the basal inferoseptal myocardium and mild hypokinesis of the mid inferoseptal, mid apical inferior and apical septal myocardium. There was severe hypokinesis of the basal mid inferolateral myocardium. The aortic valve was calculated at 1.07 cm square. Comparing with prior study from December of 2018, wall segments were noted to be dysfunctional, but this may have been related to Definity use in the study. Renal ultrasound, impression: "A 1.8 cm calculus of the superior pole of the right kidney, no hydronephrosis. Suggestion of medical renal disease. Simple bilateral renal cysts." HOSPITALIZATION COURSE: Will Martinez is a 68-year-old male with history of hypertension as well as aortic stenosis as well as recent carotid endarterectomy on the left, who presented to the hospital complaining of cold, blue toes as well as petechiae on his bilateral toes. He called his primary care provider with those complaints and he was sent to the ED for evaluation. Initially, he was admitted for observation for possibility to rule out endocarditis. During his hospital stay, he was noted to have creatinine elevation up to 2.23, which was new for the patient. He was placed on gentle intravenous hydration and the creatinine normalized by the time of discharge to 1.74, which is close to the patient's baseline. Dr. Moore saw the patient in consultation in regards to possibility of endocarditis. The petechiae noted on the patient's bilateral toes are very small and may have been related to trauma. The patient also described that his toes were cold and blue and possibility of ischemia was entertained. The patient had ankle- brachial indices performed bilaterally on arterial Dopplers and those were negative for any significant obstruction. I also question Raynaud's phenomenon. Due to that, vasculitis workup including SHELLY and ANCA testing was sent out and is pending at the time of dictation. At this point, the patient's toes had not been cyanotic throughout his entire hospital stay. His petechiae are very mild on tips of the bilateral toes. He also has a small cut on the tip of the left great toe, which questions the possibility of trauma that the patient did not realize. He does have problems with peripheral diabetic neuropathy in bilateral toes. At this point, I am unsure of the significance of the petechial rash, but it is resolving and the patient is ready to go home. He is going to go home today with recommendation to follow up with his primary care provider in 4 to 7 days. The patient's vasculitis workup is still pending at the time of dictation. PHYSICAL EXAMINATION: At the time of discharge, blood pressure of 147/74, heart rate of 77 and regular, respiratory rate 20, oxygen saturation 96% on room air, temperature 97.3. General: The patient is a very pleasant 68-year- old male, who is in no acute distress. Alert, awake, and oriented x3. HEENT: Head: Atraumatic, normocephalic. Eyes: Pupils are equal, reactive to light and accommodation. Oropharynx is clear. Mucosa moist. Neck: Supple. No JVD. No bruits bilaterally. Cardiovascular: Regular rate and rhythm with 2/6 systolic ejection murmur on auscultation of the right upper sternal border radiating to bilateral carotids. Respiratory: Clear to auscultation bilaterally. Abdomen: Soft, nontender. Bowel sounds are present in all 4 quadrants. Extremities: There is no edema. Pulses are +2 bilaterally. There is no clubbing or cyanosis. On evaluation of the skin, the patient has very scant pale petechial rash noted on the tips of his toes bilaterally. He also has a small cut noted on the tip of the left great toe. No cellulitis noted and no cyanosis noted. Neuro Evaluation: Cranial nerves II through XII grossly intact. Motor strength is 5/5 bilaterally. Please note that this is a short summary of the patient's hospital stay. Please refer to further medical records for details. TIME SPENT: Approximately 45 minutes was spent on the patient's discharge. [id number]/[facility] #: [id number] [place]
[2019-02-20] MEDS ORDERED: Insulin GLARGINE(*) 1 UNITS UNIT SUBCUT SCH (21:00)
[2019-02-21] MEDS ORDERED: Vancomycin Trough Check NOTE FOLLOW UP ONE (14:30)
== END 2019-02-20 12:30 | disposition home or self-care (01) | DRG 683 ==
LOC: ED 14:39 → MEDTELE 21:32 → OBSVTOIN 02-19 11:00
PROVIDERS: ADMIT Internal Medicine; ATTEND Internal Medicine
DX: N17.9 Acute kidney failure, unspecified (principal); N39.0 Urinary tract infection, site not specified; R23.3 Spontaneous ecchymoses; N18.9 Chronic kidney disease, unspecified; N20.0 Calculus of kidney; I35.0 Nonrheumatic aortic (valve) stenosis; E11.42 Type 2 diabetes mellitus with diabetic polyneuropathy; E11.22 Type 2 diabetes mellitus with diabetic chronic kidney disease; I25.10 Atherosclerotic heart disease of native coronary artery without angina pectoris; M19.90 Unspecified osteoarthritis, unspecified site; E78.5 Hyperlipidemia, unspecified; I12.9 Hypertensive chronic kidney disease with stage 1 through stage 4 chronic kidney disease, or unspecified chronic kidney disease; N40.0 Benign prostatic hyperplasia without lower urinary tract symptoms; K21.9 Gastro-esophageal reflux disease without esophagitis; Z88.8 Allergy status to other drugs, medicaments and biological substances; E11.65 Type 2 diabetes mellitus with hyperglycemia; F32.9 Major depressive disorder, single episode, unspecified; F41.9 Anxiety disorder, unspecified; E78.00 Pure hypercholesterolemia, unspecified; B95.2 Enterococcus as the cause of diseases classified elsewhere; Z79.4 Long term (current) use of insulin; Z79.02 Long term (current) use of antithrombotics/antiplatelets; Z79.82 Long term (current) use of aspirin; Z79.899 Other long term (current) drug therapy; I25.2 Old myocardial infarction; Z86.718 Personal history of other venous thrombosis and embolism; Z95.1 Presence of aortocoronary bypass graft; Z87.891 Personal history of nicotine dependence
CPT/HCPCS: 36415; 71045; 76775; 80048; 80053; 81003; 81015; 83516; 83735; 83880; 84484; 85025; 85610; 85652; 86038; 86140; 87040; 87086; 93005; 93306; 93922; 96372; 99284; A9270-GY; C8929; J1650; J2543; J3370

== ENCOUNTER 2020-07-22 11:01 | Observation (INO) ==
[2020-07-22 11:53] LABS: ABS Eosinophils 0.4 10^3/ul (0-0.6); ABS Monocytes 0.6 10^3/ul (0-0.8); Eosinophil % 5.4 %; Hematocrit 29 % (42-52); Hemoglobin 9.9 g/dL (14.0-18.0); Lymphocyte % 14.4 %; Mean Corpuscular HGB Conc 34 g/dL (31-36); Mean Corpuscular Hemoglobin 30 pg (27-31); Mean Corpuscular Volume 87 fL (80-94); Mean Platelet Volume 8.3 fL (7.4-10.4); Platelet Count 231 10^3/uL (150-450); Red Blood Count 3.32 10^6 /uL (4.18-5.48); Red Cell Distribution Width 16 % (10-15)
[2020-07-22 12:14] LABS: Albumin 3.1 g/dL (3.2-5.2); Albumin/Globulin Ratio 1.3 (1-3); Calcium 8.8 mg/dL (8.6-10.3); EGFR African American 37.9 (>60); EGFR Non-African American 31.3 (>60); Globulin 2.4 g/dL (2-4); Potassium 4.4 mmol/L (3.5-5.0); Total Bilirubin 0.8 mg/dL (0.2-1.0); Total Protein 5.5 g/dL (6.4-8.9)
[2020-07-22] MEDS ORDERED: Furosemide 40 mg/4 ml IV VIAL IV SLOW PU ONE (13:55)
[2020-07-22] MEDS ORDERED: Dextrose 50% Syringe 50 ml 25 GM/50 ML SYRINGE IV PUSH PRN (13:57)
[2020-07-22 17:50] LABS: Glucose Confirmatory 450 mg/dL (70-100)
[2020-07-22] MEDS: Insulin GLARGINE 100 un/ml 10 ml VIAL SUBCUT SCH (21:40)
[2020-07-22] MEDS: Heparin 5000 UNITS/ML 1 mL VIAL SUBCUT SCH (21:41)
[2020-07-23 06:35] LABS: Calcium 8.9 mg/dL (8.6-10.3); EGFR African American 38.1 (>60); EGFR Non-African American 31.5 (>60); Potassium 3.9 mmol/L (3.5-5.0)
[2020-07-23] MEDS ORDERED: Aspirin EC 81 mg TAB.EC (enteric coated) PO SCH (09:00)
[2020-07-23] MEDS ORDERED: Silodosin 8 mg CAP (NF) PO SCH (09:00)
[2020-07-23] MEDS: Insulin GLARGINE 100 un/ml 10 ml VIAL SUBCUT SCH (09:35)
[2020-07-23] MEDS: Heparin 5000 UNITS/ML 1 mL VIAL SUBCUT SCH (09:37)
[2020-07-23 12:56] VITALS: BP 135/61
== END 2020-07-23 14:17 | disposition home or self-care (01) ==
LOC: ED 11:01 → MEDTELE 11:01
PROVIDERS: ADMIT Student in an Organized Health Care Education/Training Program; ATTEND Student in an Organized Health Care Education/Training Program

== ENCOUNTER 2020-09-23 02:15 | Inpatient (IN) ==
[2020-09-23] MEDS ORDERED: NS 0.9% 1000 ml BAG 1,000 ML IV ONE (02:25)
[2020-09-23 03:22] LABS: ABS Basophils 0.1 10^3/ul (0-0.2); ABS Eosinophils 0.6 10^3/ul (0-0.6); ABS Lymphocytes 1.2 10^3/ul (1.0-4.8); ABS Monocytes 0.6 10^3/ul (0-0.8); ABS Neutrophils 5.5 10^3/ul (1.5-7.7); Eosinophil % 7.9 %; Hematocrit 26 % (42-52); Mean Corpuscular HGB Conc 35 g/dL (31-36); Mean Corpuscular Hemoglobin 30 pg (27-31); Mean Corpuscular Volume 85 fL (80-94); Mean Platelet Volume 7.9 fL (7.4-10.4); Platelet Count 275 10^3/uL (150-450); Red Blood Count 3.04 10^6 /uL (4.18-5.48); Red Cell Distribution Width 16 % (10-15)
[2020-09-23 03:31] LABS: Activated Partial Thrombo Time 33.1 seconds (26.0-38.0); INR 1.22 (0.86-1.15)
[2020-09-23 03:38] LABS: Albumin 3.5 g/dL (3.2-5.2); Albumin/Globulin Ratio 1.3 (1-3); C Reactive Protein 18.56 mg/L (<8.01); Calcium 9.1 mg/dL (8.6-10.3); EGFR African American 27.1 (>60); EGFR Non-African American 22.4 (>60); Globulin 2.7 g/dL (2-4); Potassium 4.5 mmol/L (3.5-5.0); Total Bilirubin 0.6 mg/dL (0.2-1.0); Total Protein 6.2 g/dL (6.4-8.9)
[2020-09-23 03:52] LABS: Urine Appearance Cloudy; Urine Bacteria Absent (Absent); Urine Bilirubin Negative (Negative); Urine Blood 3+ (Negative); Urine Color Red; Urine Glucose 2+(150 mg/dL) (Negative); Urine Ketones Negative (Negative); Urine Nitrite Negative (Negative); Urine Protein 3+(>=500 mg/dL) (Negative); Urine Red Blood Cell 3+(>10/hpf) (Absent); Urine Specific Gravity 1.011 (1.002-1.030); Urine Urobilinogen Negative (Negative); Urine White Blood Cell 3+(>20/hpf) (Absent)
[2020-09-23] MEDS ORDERED: Ondansetron 4 mg VIAL 2 MG/ML 2 ml VIAL IV PRN (05:01)
[2020-09-23] MEDS ORDERED: NS 0.9% 1000 ml BAG 1,000 ML IV SCH (05:15)
[2020-09-23] MEDS ORDERED: Senna TAB 8.6 mg TAB PO PRN (05:37)
[2020-09-23 06:46] LABS: Activated Partial Thrombo Time 32.9 seconds (26.0-38.0); INR 1.42 (0.86-1.15)
[2020-09-23 06:56] LABS: Calcium 8.5 mg/dL (8.6-10.3); EGFR African American 29.5 (>60); EGFR Non-African American 24.3 (>60); Potassium 4.6 mmol/L (3.5-5.0)
[2020-09-23] MEDS: Pantoprazole VIAL 40 MG VIAL IV SCH ×2 (07:08→18:09)
[2020-09-23 08:06] LABS: Erythrocyte Sed Rate 109 mm/Hr (0-19)
[2020-09-23 08:25] LABS: Hematocrit 26 % (42-52); Mean Corpuscular HGB Conc 35 g/dL (31-36); Mean Corpuscular Hemoglobin 29 pg (27-31); Mean Corpuscular Volume 85 fL (80-94); Mean Platelet Volume 8.2 fL (7.4-10.4); Platelet Count 248 10^3/uL (150-450); Red Blood Count 3.05 10^6 /uL (4.18-5.48); Red Cell Distribution Width 15 % (10-15); White Blood Count 7.7 10^3/uL (3.5-10.8)
[2020-09-23] MEDS: Multivitamins/Minerals TAB PO SCH (10:14)
[2020-09-23] MEDS: Insulin GLARGINE 100 un/ml 10 ml VIAL SUBCUT SCH ×2 (10:14→21:38)
[2020-09-23] MEDS ORDERED: Perflutren Lipid Microsphere 3 ML VIAL ONE (11:16)
[2020-09-23 12:33] LABS: Hematocrit 25 % (42-52); Hemoglobin 8.6 g/dL (14.0-18.0)
[2020-09-23] MEDS: Mometasone 220 MCG MDI INH SCH (16:05)
[2020-09-23 18:39] LABS: Hematocrit 25 % (42-52); Hemoglobin 8.7 g/dL (14.0-18.0)
[2020-09-24 00:15] LABS: Hematocrit 24 % (42-52); Hemoglobin 8.3 g/dL (14.0-18.0)
[2020-09-24] MEDS: Pantoprazole VIAL 40 MG VIAL IV SCH ×2 (06:05→17:47)
[2020-09-24 06:24] LABS: ABS Basophils 0.1 10^3/ul (0-0.2); ABS Eosinophils 0.5 10^3/ul (0-0.6); ABS Lymphocytes 1.3 10^3/ul (1.0-4.8); ABS Monocytes 0.6 10^3/ul (0-0.8); ABS Neutrophils 5.5 10^3/ul (1.5-7.7); Eosinophil % 5.8 %; Hematocrit 24 % (42-52); Hemoglobin 8.6 g/dL (14.0-18.0); Lymphocyte % 16.4 %; Mean Corpuscular HGB Conc 35 g/dL (31-36); Mean Corpuscular Hemoglobin 30 pg (27-31); Mean Corpuscular Volume 85 fL (80-94); Mean Platelet Volume 7.8 fL (7.4-10.4); Platelet Count 264 10^3/uL (150-450); Red Blood Count 2.86 10^6 /uL (4.18-5.48); Red Cell Distribution Width 15 % (10-15); White Blood Count 7.9 10^3/uL (3.5-10.8)
[2020-09-24 06:35] LABS: Calcium 8.8 mg/dL (8.6-10.3); EGFR African American 30.5 (>60); EGFR Non-African American 25.2 (>60); Potassium 4.3 mmol/L (3.5-5.0)
[2020-09-24] MEDS: Mometasone 220 MCG MDI INH SCH (07:44)
[2020-09-24] MEDS: Multivitamins/Minerals TAB PO SCH (09:35)
[2020-09-24] MEDS: Insulin GLARGINE 100 un/ml 10 ml VIAL SUBCUT SCH ×2 (09:35→23:26)
[2020-09-24] MEDS: Psyllium PAK PO SCH (09:36)
[2020-09-24] MEDS ORDERED: Dextrose 50% Syringe 50 ml 25 GM/50 ML SYRINGE IV PUSH PRN ×2 (12:46→13:37)
[2020-09-24] MEDS ORDERED: cefTRIAXone 1 gm/50 mL NS BAG 1 GM/50 ML BAG IVPB SCH (17:30)
[2020-09-25 05:24] LABS: ABS Basophils 0.2 10^3/ul (0-0.2); ABS Eosinophils 0.5 10^3/ul (0-0.6); ABS Lymphocytes 1.2 10^3/ul (1.0-4.8); ABS Monocytes 0.6 10^3/ul (0-0.8); ABS Neutrophils 4.8 10^3/ul (1.5-7.7); Eosinophil % 6.6 %; Hematocrit 24 % (42-52); Hemoglobin 8.4 g/dL (14.0-18.0); Lymphocyte % 16.8 %; Mean Corpuscular HGB Conc 35 g/dL (31-36); Mean Corpuscular Hemoglobin 30 pg (27-31); Mean Corpuscular Volume 84 fL (80-94); Mean Platelet Volume 7.1 fL (7.4-10.4); Platelet Count 260 10^3/uL (150-450); Red Blood Count 2.82 10^6 /uL (4.18-5.48); Red Cell Distribution Width 16 % (10-15); White Blood Count 7.4 10^3/uL (3.5-10.8)
[2020-09-25 05:41] LABS: Calcium 8.6 mg/dL (8.6-10.3); EGFR African American 30.1 (>60); EGFR Non-African American 24.9 (>60); Potassium 4.5 mmol/L (3.5-5.0)
[2020-09-25] MEDS: Mometasone 220 MCG MDI INH SCH (07:17)
[2020-09-25] MEDS: Pantoprazole VIAL 40 MG VIAL IV SCH (07:36)
[2020-09-25 08:02] VITALS: BP 134/50
[2020-09-25] MEDS: Multivitamins/Minerals TAB PO SCH (08:31)
[2020-09-25] MEDS: Insulin GLARGINE 100 un/ml 10 ml VIAL SUBCUT SCH (08:31)
[2020-09-25] MEDS: Psyllium PAK PO SCH (08:33)
== END 2020-09-25 11:16 | disposition home or self-care (01) | DRG 690 ==
LOC: ED 02:15 → MEDTELE 05:01
PROVIDERS: ADMIT Student in an Organized Health Care Education/Training Program; ATTEND Hospitalist

== ENCOUNTER 2021-03-15 23:52 | Inpatient (IN) ==
[2021-03-15] MEDS ORDERED: NS 0.9% 1000 ml BAG 1,000 ML IV ONE (23:54)
[2021-03-16 00:17] LABS: ABS Eosinophils 0.3 10^3/ul (0-0.6); ABS Monocytes 0.4 10^3/ul (0-0.8); Eosinophil % 5.7 %; Hematocrit 31 % (42-52); Hemoglobin 10.5 g/dL (14.0-18.0); Lymphocyte % 16.9 %; Mean Corpuscular HGB Conc 34 g/dL (31-36); Mean Corpuscular Hemoglobin 29 pg (27-31); Mean Corpuscular Volume 86 fL (80-94); Mean Platelet Volume 8.2 fL (7.4-10.4); Nucleated Red Blood Cells % 0.1; Platelet Count 273 10^3/uL (150-450); Red Cell Distribution Width 16 % (10-15); White Blood Count 5.8 10^3/uL (3.5-10.8)
[2021-03-16 00:38] LABS: Activated Partial Thrombo Time 28.8 seconds (26.0-38.0); INR 0.99 (0.86-1.15)
[2021-03-16] MEDS ORDERED: ALTEPLASE IV ONE ×2 (00:38→00:40)
[2021-03-16] MEDS ORDERED: Alteplase (100 mg Vial) 100 mg VIAL ONE (00:39)
[2021-03-16 00:43] LABS: ALT 19 U/L (7-52); AST 19 U/L (13-39); Albumin 3.1 g/dL (3.2-5.2); Albumin/Globulin Ratio 1.3 (1-3); Alkaline Phosphatase 83 U/L (35-149); Anion Gap 6 mmol/L (2-11); Blood Urea Nitrogen 43 mg/dL (6-24); CO2 Carbon Dioxide 25 mmol/L (22-32); Calcium 8.6 mg/dL (8.6-10.3); Chloride 100 mmol/L (101-111); Cholesterol 285 mg/dL; Globulin 2.4 g/dL (2-4); Glucose 428 mg/dL (70-100); HDL Cholesterol 31.9 mg/dL; Potassium 4.8 mmol/L (3.5-5.0); Sodium 131 mmol/L (135-145); Total Protein 5.5 g/dL (6.4-8.9); Triglycerides 599 mg/dL; eGFR CKD-EPI 29.1 (>60)
[2021-03-16] MEDS ORDERED: Alteplase (100 mg Vial) 100 mg VIAL IV ONE ×2 (00:43→00:44)
[2021-03-16] MEDS ORDERED: Iodixanol (CONTRAST) 320 MG/ML 100 ML SDV IV ONE (00:48)
[2021-03-16 00:58] LABS: LDL Cholesterol Direct 168 mg/dL
[2021-03-16 01:00] LABS: Troponin I 0.03 ng/mL (<0.03)
[2021-03-16] MEDS ORDERED: niCARdipine 0.1MG/ML IVPREMIX 20 MG/200 ML BAG IV SCH (01:00)
[2021-03-16] MEDS ORDERED: Labetalol IV 5 MG/ML 20 ml VIAL IV PUSH PRN ×2 (02:03→07:49)
[2021-03-16] MEDS ORDERED: Dextrose 50% Syringe 50 ml 25 GM/50 ML SYRINGE IV PUSH PRN (02:03)
[2021-03-16 07:02] LABS: Calcium 7.8 mg/dL (8.6-10.3); HDL Cholesterol 29.1 mg/dL; Potassium 4.2 mmol/L (3.5-5.0); eGFR CKD-EPI 32.3 (>60)
[2021-03-16 07:24] LABS: ABS Basophils 0.1 10^3/ul (0-0.2); ABS Eosinophils 0.3 10^3/ul (0-0.6); ABS Lymphocytes 1.2 10^3/ul (1.0-4.8); ABS Monocytes 0.5 10^3/ul (0-0.8); ABS Neutrophils 4.2 10^3/ul (1.5-7.7); Hematocrit 28 % (42-52); Hemoglobin 9.2 g/dL (14.0-18.0); Lymphocyte % 19.7 %; Mean Corpuscular HGB Conc 34 g/dL (31-36); Mean Corpuscular Hemoglobin 29 pg (27-31); Mean Corpuscular Volume 86 fL (80-94); Mean Platelet Volume 8.2 fL (7.4-10.4); Platelet Count 239 10^3/uL (150-450); Red Blood Count 3.19 10^6 /uL (4.18-5.48); Red Cell Distribution Width 15 % (10-15); White Blood Count 6.3 10^3/uL (3.5-10.8)
[2021-03-16 08:36] LABS: Magnesium 1.7 mg/dL (1.9-2.7); Phosphorus 3.9 mg/dL (2.5-5.0)
[2021-03-16] MEDS ORDERED: Magnesium Sulfate IV 3 GM in NS 0.9% 100 ml BAG 100 ML IVPB ONE (09:00)
[2021-03-16] MEDS ORDERED: Insulin GLARGINE 100 un/ml 10 ml VIAL SUBCUT SCH (09:00)
[2021-03-16] MEDS: Insulin GLARGINE 100 un/ml 10 ml VIAL SUBCUT SCH (20:40)
[2021-03-17] MEDS: Labetalol IV 5 MG/ML 20 ml VIAL IV PUSH PRN ×3 (01:39→16:50)
[2021-03-17 04:54] LABS: Hematocrit 29 % (42-52); Hemoglobin 9.6 g/dL (14.0-18.0); Mean Corpuscular HGB Conc 34 g/dL (31-36); Mean Corpuscular Hemoglobin 29 pg (27-31); Mean Corpuscular Volume 86 fL (80-94); Mean Platelet Volume 7.7 fL (7.4-10.4); Platelet Count 219 10^3/uL (150-450); Red Blood Count 3.34 10^6 /uL (4.18-5.48); Red Cell Distribution Width 16 % (10-15); White Blood Count 5.5 10^3/uL (3.5-10.8)
[2021-03-17 05:01] LABS: INR 1.23 (0.86-1.15)
[2021-03-17 05:11] LABS: Calcium 7.8 mg/dL (8.6-10.3); Magnesium 2.2 mg/dL (1.9-2.7); Phosphorus 3.6 mg/dL (2.5-5.0); eGFR CKD-EPI 33.4 (>60)
[2021-03-17] MEDS: Insulin GLARGINE 100 un/ml 10 ml VIAL SUBCUT SCH ×2 (10:56→22:01)
[2021-03-17] MEDS ORDERED: Labetalol IV 5 MG/ML 20 ml VIAL IV PUSH ONE (17:08)
[2021-03-17 21:30] LABS: Glucose Confirmatory 408 mg/dL (70-100)
[2021-03-17] MEDS ORDERED: Dextrose 50% Syringe 50 ml 25 GM/50 ML SYRINGE IV PUSH PRN (21:49)
[2021-03-18] MEDS: Insulin GLARGINE 100 un/ml 10 ml VIAL SUBCUT SCH ×2 (08:24→19:58)
[2021-03-18 09:00] LABS: ABS Basophils 0.2 10^3/ul (0-0.2); ABS Eosinophils 0.4 10^3/ul (0-0.6); ABS Lymphocytes 1.1 10^3/ul (1.0-4.8); ABS Monocytes 0.4 10^3/ul (0-0.8); ABS Neutrophils 3.8 10^3/ul (1.5-7.7); Eosinophil % 6.6 %; Hematocrit 29 % (42-52); Lymphocyte % 18.7 %; Mean Corpuscular HGB Conc 34 g/dL (31-36); Mean Corpuscular Hemoglobin 29 pg (27-31); Mean Corpuscular Volume 86 fL (80-94); Mean Platelet Volume 7.8 fL (7.4-10.4); Nucleated Red Blood Cells % 0.1; Platelet Count 231 10^3/uL (150-450); Red Blood Count 3.42 10^6 /uL (4.18-5.48); Red Cell Distribution Width 16 % (10-15); White Blood Count 5.9 10^3/uL (3.5-10.8)
[2021-03-18 09:17] LABS: Calcium 8.3 mg/dL (8.6-10.3); Potassium 4.4 mmol/L (3.5-5.0); eGFR CKD-EPI 33.4 (>60)
[2021-03-19] MEDS ORDERED: Labetalol IV 5 MG/ML 20 ml VIAL IV PUSH ONE (01:42)
[2021-03-19] MEDS ORDERED: Labetalol IV 5 MG/ML 20 ml VIAL IV PUSH PRN (03:13)
[2021-03-19] MEDS: Insulin GLARGINE 100 un/ml 10 ml VIAL SUBCUT SCH ×2 (08:39→21:23)
[2021-03-20 08:26] VITALS: BP 114/54
[2021-03-20] MEDS: Insulin GLARGINE 100 un/ml 10 ml VIAL SUBCUT SCH (08:45)
== END 2021-03-20 10:36 | DRG 62 ==
LOC: ED 23:52 → EDHOLD 03-16 01:56 → SUATTDRO 03-16 01:56 → ICU 03-16 06:04 → MEDTELE 03-17 18:33
PROVIDERS: ADMIT Internal Medicine; ATTEND Internal Medicine

== ENCOUNTER 2021-03-20 08:47 | Inpatient (IN) ==
[2021-03-20] MEDS ORDERED: Magnesium Hydroxide LIQ 30 ML UDC PO PRN (09:11)
[2021-03-20] MEDS ORDERED: Al Hydrox/Mg Hydrox/Simet LIQ 30 ML UDC PO PRN (09:11)
[2021-03-20] MEDS ORDERED: Dextrose 50% Syringe 50 ml 25 GM/50 ML SYRINGE IV PUSH PRN (09:20)
[2021-03-20] MEDS: Enoxaparin 30 MG/0.3 ML SYR SUBCUT SCH (11:58)
[2021-03-20] MEDS: Insulin GLARGINE 100 un/ml 10 ml VIAL SUBCUT SCH (21:40)
[2021-03-21 06:15] LABS: ABS Eosinophils 0.4 10^3/ul (0-0.6); ABS Lymphocytes 1.2 10^3/ul (1.0-4.8); ABS Monocytes 0.4 10^3/ul (0-0.8); ABS Neutrophils 3.8 10^3/ul (1.5-7.7); Eosinophil % 7.5 %; Hematocrit 30 % (42-52); Hemoglobin 10.1 g/dL (14.0-18.0); Lymphocyte % 20.6 %; Mean Corpuscular HGB Conc 34 g/dL (31-36); Mean Corpuscular Hemoglobin 29 pg (27-31); Mean Corpuscular Volume 86 fL (80-94); Mean Platelet Volume 7.8 fL (7.4-10.4); Platelet Count 241 10^3/uL (150-450); Red Blood Count 3.51 10^6 /uL (4.18-5.48); Red Cell Distribution Width 16 % (10-15); White Blood Count 5.9 10^3/uL (3.5-10.8)
[2021-03-21 07:56] LABS: Potassium 4.6 mmol/L (3.5-5.0)
[2021-03-21 07:57] LABS: Albumin/Globulin Ratio 1.3 (1-3); Calcium 8.6 mg/dL (8.6-10.3); Globulin 2.4 g/dL (2-4); Total Bilirubin 0.7 mg/dL (0.2-1.0); Total Protein 5.4 g/dL (6.4-8.9); eGFR CKD-EPI 28.7 (>60)
[2021-03-21] MEDS: Enoxaparin 30 MG/0.3 ML SYR SUBCUT SCH (09:26)
[2021-03-21] MEDS: Insulin GLARGINE 100 un/ml 10 ml VIAL SUBCUT SCH ×2 (09:27→21:50)
[2021-03-22] MEDS: Insulin GLARGINE 100 un/ml 10 ml VIAL SUBCUT SCH ×2 (10:46→20:52)
[2021-03-22] MEDS: Enoxaparin 30 MG/0.3 ML SYR SUBCUT SCH (10:48)
[2021-03-22] MEDS: Senna TAB 8.6 mg TAB PO PRN (20:52)
[2021-03-23] MEDS: Insulin GLARGINE 100 un/ml 10 ml VIAL SUBCUT SCH ×2 (10:46→21:01)
[2021-03-23] MEDS: Enoxaparin 30 MG/0.3 ML SYR SUBCUT SCH (10:48)
[2021-03-24] MEDS: Insulin GLARGINE 100 un/ml 10 ml VIAL SUBCUT SCH ×2 (08:52→20:46)
[2021-03-24] MEDS: Enoxaparin 30 MG/0.3 ML SYR SUBCUT SCH (08:53)
[2021-03-24] MEDS: Senna TAB 8.6 mg TAB PO PRN (20:47)
[2021-03-25] MEDS: Insulin GLARGINE 100 un/ml 10 ml VIAL SUBCUT SCH ×2 (09:56→21:46)
[2021-03-25] MEDS: Enoxaparin 30 MG/0.3 ML SYR SUBCUT SCH (10:00)
[2021-03-26] MEDS: Insulin GLARGINE 100 un/ml 10 ml VIAL SUBCUT SCH ×2 (09:34→21:06)
[2021-03-26] MEDS: Enoxaparin 30 MG/0.3 ML SYR SUBCUT SCH (09:35)
[2021-03-27 06:57] LABS: ABS Basophils 0.2 10^3/ul (0-0.2); ABS Eosinophils 0.4 10^3/ul (0-0.6); ABS Lymphocytes 1.3 10^3/ul (1.0-4.8); ABS Monocytes 0.5 10^3/ul (0-0.8); ABS Neutrophils 4.1 10^3/ul (1.5-7.7); Eosinophil % 6.6 %; Hematocrit 29 % (42-52); Lymphocyte % 20.1 %; Mean Corpuscular HGB Conc 34 g/dL (31-36); Mean Corpuscular Hemoglobin 29 pg (27-31); Mean Corpuscular Volume 85 fL (80-94); Mean Platelet Volume 7.8 fL (7.4-10.4); Platelet Count 213 10^3/uL (150-450); Red Blood Count 3.43 10^6 /uL (4.18-5.48); Red Cell Distribution Width 15 % (10-15); White Blood Count 6.6 10^3/uL (3.5-10.8)
[2021-03-27 07:13] LABS: Albumin 2.9 g/dL (3.2-5.2); Albumin/Globulin Ratio 1.2 (1-3); Calcium 8.4 mg/dL (8.6-10.3); Globulin 2.4 g/dL (2-4); Potassium 4.6 mmol/L (3.5-5.0); Total Bilirubin 0.5 mg/dL (0.2-1.0); Total Protein 5.3 g/dL (6.4-8.9); eGFR CKD-EPI 32.5 (>60)
[2021-03-27] MEDS: Enoxaparin 30 MG/0.3 ML SYR SUBCUT SCH (08:36)
[2021-03-27] MEDS: Insulin GLARGINE 100 un/ml 10 ml VIAL SUBCUT SCH ×2 (08:37→21:00)
[2021-03-28] MEDS: Insulin GLARGINE 100 un/ml 10 ml VIAL SUBCUT SCH ×2 (08:36→21:02)
[2021-03-28] MEDS: Enoxaparin 30 MG/0.3 ML SYR SUBCUT SCH (08:36)
[2021-03-29] MEDS: Insulin GLARGINE 100 un/ml 10 ml VIAL SUBCUT SCH ×2 (08:38→20:55)
[2021-03-29] MEDS: Enoxaparin 30 MG/0.3 ML SYR SUBCUT SCH (08:39)
[2021-03-30] MEDS: Enoxaparin 30 MG/0.3 ML SYR SUBCUT SCH (09:53)
[2021-03-30] MEDS: Insulin GLARGINE 100 un/ml 10 ml VIAL SUBCUT SCH ×2 (09:53→21:19)
[2021-03-31] MEDS: Insulin GLARGINE 100 un/ml 10 ml VIAL SUBCUT SCH ×2 (09:39→20:45)
[2021-03-31] MEDS: Enoxaparin 30 MG/0.3 ML SYR SUBCUT SCH (09:39)
[2021-04-01] MEDS: Enoxaparin 30 MG/0.3 ML SYR SUBCUT SCH (09:00)
[2021-04-01] MEDS: Insulin GLARGINE 100 un/ml 10 ml VIAL SUBCUT SCH ×2 (09:01→20:48)
[2021-04-02] MEDS: Insulin GLARGINE 100 un/ml 10 ml VIAL SUBCUT SCH ×2 (09:11→21:25)
[2021-04-02] MEDS: Enoxaparin 30 MG/0.3 ML SYR SUBCUT SCH (09:11)
[2021-04-03 05:40] LABS: ABS Eosinophils 0.5 10^3/ul (0-0.6); ABS Lymphocytes 1.3 10^3/ul (1.0-4.8); ABS Monocytes 0.5 10^3/ul (0-0.8); ABS Neutrophils 5.4 10^3/ul (1.5-7.7); Eosinophil % 6.8 %; Hematocrit 32 % (42-52); Hemoglobin 11.1 g/dL (14.0-18.0); Lymphocyte % 16.9 %; Mean Corpuscular HGB Conc 34 g/dL (31-36); Mean Corpuscular Hemoglobin 29 pg (27-31); Mean Corpuscular Volume 85 fL (80-94); Nucleated Red Blood Cells % 0.1; Platelet Count 262 10^3/uL (150-450); Red Blood Count 3.82 10^6 /uL (4.18-5.48); Red Cell Distribution Width 16 % (10-15); White Blood Count 7.7 10^3/uL (3.5-10.8)
[2021-04-03 05:57] LABS: ALT 30 U/L (7-52); Albumin 3.4 g/dL (3.2-5.2); Albumin/Globulin Ratio 1.2 (1-3); Alkaline Phosphatase 77 U/L (35-149); Blood Urea Nitrogen 48 mg/dL (6-24); CO2 Carbon Dioxide 26 mmol/L (22-32); Calcium 8.9 mg/dL (8.6-10.3); Chloride 103 mmol/L (101-111); Globulin 2.8 g/dL (2-4); Glucose 131 mg/dL (70-100); Sodium 136 mmol/L (135-145); Total Protein 6.2 g/dL (6.4-8.9); eGFR CKD-EPI 31.2 (>60)
[2021-04-03 06:03] LABS: Anion Gap 7 mmol/L (2-11)
[2021-04-03 07:37] LABS: Potassium Redraw 4.6 mmol/L (3.5-5.0)
[2021-04-03] MEDS: Enoxaparin 30 MG/0.3 ML SYR SUBCUT SCH (10:08)
[2021-04-03] MEDS: Insulin GLARGINE 100 un/ml 10 ml VIAL SUBCUT SCH ×2 (10:09→21:08)
[2021-04-04] MEDS: Enoxaparin 30 MG/0.3 ML SYR SUBCUT SCH (09:16)
[2021-04-04] MEDS: Insulin GLARGINE 100 un/ml 10 ml VIAL SUBCUT SCH ×2 (09:19→21:15)
[2021-04-05] MEDS: Insulin GLARGINE 100 un/ml 10 ml VIAL SUBCUT SCH ×2 (09:56→20:26)
[2021-04-05] MEDS: Enoxaparin 30 MG/0.3 ML SYR SUBCUT SCH (09:56)
[2021-04-06 05:48] VITALS: BP 169/75
[2021-04-06] MEDS ORDERED: Insulin GLARGINE 100 un/ml 10 ml VIAL SUBCUT SCH (09:00)
[2021-04-06] MEDS: Enoxaparin 30 MG/0.3 ML SYR SUBCUT SCH (09:29)
== END 2021-04-06 11:45 | disposition home health service (06) | DRG 57 ==
LOC: PMRU 10:45
PROVIDERS: ADMIT Physical Medicine & Rehabilitation; ATTEND Physical Medicine & Rehabilitation

== ENCOUNTER 2023-02-06 18:00 | Inpatient (IN) ==
[2023-02-06 19:13] LABS: ABS Basophils 0.1 10^3/uL (0.0-0.1); ABS Eosinophils 0.2 10^3/uL (0.0-0.5); ABS Lymphocytes 0.8 10^3/uL (1.0-4.8); ABS Monocytes 0.6 10^3/uL (0.0-1.1); ABS Neutrophils 8.9 10^3/uL (1.5-7.6); Eosinophil % 1.6 %; Hematocrit 27.3 % (38-53); Hemoglobin 9.4 g/dL (13.2-16.3); Lymphocyte % 7.2 %; Mean Corpuscular Hemoglobin 28.5 pg (27-33); Mean Corpuscular Hgb Conc 34.3 g/dL (31-36); Mean Corpuscular Volume 83.3 fL (80-97); Mean Platelet Volume 8.1 fL (7.5-11.2); Platelet Count 249 10^3/uL (150-450); Red Blood Count 3.28 10^6/uL (4.06-5.63); Red Cell Distribution Width 16.8 % (12-17); White Blood Count 10.5 10^3/uL (3.6-10.2)
[2023-02-06 19:31] LABS: Albumin/Globulin Ratio 1.3 (1-3); Calcium 9.3 mg/dL (8.6-10.3); Creatinine, Serum 3.9 mg/dL (0.67-1.17); Globulin 3.1 g/dL (2-4); Potassium 4.3 mmol/L (3.5-5.0); Total Bilirubin 0.5 mg/dL (0.2-1.0); Total Protein 7.1 g/dL (6.4-8.9); eGFR CKD-EPI 15.4 (>60)
[2023-02-06] MEDS ORDERED: Azithromycin 500 mg/250 ml NS 500 MG/250 ML BAG IVPB ONE (19:43)
[2023-02-06] MEDS ORDERED: cefTRIAXone 1 gm/50 mL NS BAG 1 GM/50 ML BAG IVPB ONE (20:00)
[2023-02-06 20:43] LABS: High Sensitivity Troponin 1 Hr 37 pg/mL (<20)
[2023-02-06] MEDS ORDERED: Dextrose 50% Syringe 50 ml 25 GM/50 ML SYRINGE IV PUSH PRN ×2 (21:20→23:31)
[2023-02-06] MEDS: Insulin GLARGINE 100 un/ml 10 ml VIAL SUBCUT SCH (22:39)
[2023-02-07] MEDS: Heparin 5000 UNITS/ML 1 mL VIAL SUBCUT SCH ×3 (06:18→21:29)
[2023-02-07] MEDS ORDERED: Albuterol/Ipratropium NEB.SOL (2.5/0.5 MG) 3 ML NEB.SOLN INH ONE (06:28)
[2023-02-07 06:32] LABS: ABS Basophils 0.1 10^3/uL (0.0-0.1); ABS Eosinophils 0.2 10^3/uL (0.0-0.5); ABS Lymphocytes 0.9 10^3/uL (1.0-4.8); ABS Monocytes 0.7 10^3/uL (0.0-1.1); ABS Neutrophils 5.5 10^3/uL (1.5-7.6); ABS Nucleated RBC 0.01 10^3/ul; Eosinophil % 2.1 %; Hematocrit 22.2 % (38-53); Hemoglobin 7.7 g/dL (13.2-16.3); Lymphocyte % 12.7 %; Mean Corpuscular Hemoglobin 28.9 pg (27-33); Mean Corpuscular Hgb Conc 34.7 g/dL (31-36); Mean Corpuscular Volume 83.3 fL (80-97); Mean Platelet Volume 7.6 fL (7.5-11.2); Nucleated Red Blood Cells % 0.1 %/100WBC (0.0-0.8); Platelet Count 189 10^3/uL (150-450); Red Blood Count 2.67 10^6/uL (4.06-5.63); Red Cell Distribution Width 16.2 % (12-17); White Blood Count 7.3 10^3/uL (3.6-10.2)
[2023-02-07 07:01] LABS: Creatinine, Serum 4.11 mg/dL (0.67-1.17); eGFR CKD-EPI 14.5 (>60)
[2023-02-07 07:07] LABS: Activated Partial Thrombo Time 30.1 seconds (26.0-38.0); INR 1.07 (0.83-1.13)
[2023-02-07] MEDS: Insulin GLARGINE 100 un/ml 10 ml VIAL SUBCUT SCH ×2 (08:55→20:17)
[2023-02-07 10:21] LABS: Calcium 8.7 mg/dL (8.6-10.3); Potassium 3.9 mmol/L (3.5-5.0)
[2023-02-07] MEDS ORDERED: Lactated Ringers 1000 ml BAG 1,000 ML IV SCH (12:00)
[2023-02-07 14:37] LABS: ABS Eosinophils 0.2 10^3/uL (0.0-0.5); ABS Lymphocytes 0.7 10^3/uL (1.0-4.8); ABS Monocytes 0.5 10^3/uL (0.0-1.1); ABS Neutrophils 6.2 10^3/uL (1.5-7.6); Eosinophil % 2.1 %; Hematocrit 22.1 % (38-53); Hemoglobin 7.6 g/dL (13.2-16.3); Lymphocyte % 8.7 %; Mean Corpuscular Hemoglobin 28.5 pg (27-33); Mean Corpuscular Hgb Conc 34.5 g/dL (31-36); Mean Corpuscular Volume 82.7 fL (80-97); Mean Platelet Volume 8.1 fL (7.5-11.2); Platelet Count 208 10^3/uL (150-450); Red Blood Count 2.67 10^6/uL (4.06-5.63); Red Cell Distribution Width 16.3 % (12-17); White Blood Count 7.6 10^3/uL (3.6-10.2)
[2023-02-07] MEDS ORDERED: Ondansetron 4 mg VIAL 2 MG/ML 2 ml VIAL IV PRN (14:41)
[2023-02-07 14:52] LABS: Calcium 8.7 mg/dL (8.6-10.3); Creatinine, Serum 4.03 mg/dL (0.67-1.17); eGFR CKD-EPI 14.8 (>60)
[2023-02-07] MEDS ORDERED: Albuterol 2.5mg/3 ml (0.083%) NEB.SOLN INH PRN (15:58)
[2023-02-07] MEDS ORDERED: hydrALAZINE 20 mg/ml 1 ML Vial IV IV SLOW PU PRN (16:38)
[2023-02-07] MEDS ORDERED: Bumetanide IV 0.25 MG/ML 4 ml VIAL (1 mg) IV SLOW PU PRN (16:52)
[2023-02-07] MEDS: methylPREDNISolone SOD SUCC 40 mg/ml 1 ml VIAL IV SCH (17:53)
[2023-02-07] MEDS: Pantoprazole VIAL 40 MG VIAL IV SCH (20:17)
[2023-02-07] MEDS: cefTRIAXone 1 gm/50 mL D5W 1 GM/50 ML BAG IV SCH (20:32)
[2023-02-08] MEDS: methylPREDNISolone SOD SUCC 40 mg/ml 1 ml VIAL IV SCH ×4 (01:08→23:00)
[2023-02-08] MEDS: Heparin 5000 UNITS/ML 1 mL VIAL SUBCUT SCH ×3 (05:10→21:26)
[2023-02-08 05:59] LABS: ABS Lymphocytes 0.3 10^3/uL (1.0-4.8); ABS Monocytes 0.1 10^3/uL (0.0-1.1); ABS Neutrophils 6.7 10^3/uL (1.5-7.6); Hematocrit 26.8 % (38-53); Hemoglobin 9.2 g/dL (13.2-16.3); Lymphocyte % 4.3 %; Mean Corpuscular Hemoglobin 28.4 pg (27-33); Mean Corpuscular Hgb Conc 34.4 g/dL (31-36); Mean Corpuscular Volume 82.4 fL (80-97); Mean Platelet Volume 8.1 fL (7.5-11.2); Nucleated Red Blood Cells % 0.1 %/100WBC (0.0-0.8); Platelet Count 217 10^3/uL (150-450); Red Blood Count 3.26 10^6/uL (4.06-5.63); Red Cell Distribution Width 15.8 % (12-17); White Blood Count 7.1 10^3/uL (3.6-10.2)
[2023-02-08 06:14] LABS: Calcium 9.1 mg/dL (8.6-10.3); Creatinine, Serum 3.78 mg/dL (0.67-1.17); Phosphorus 4.2 mg/dL (2.5-5.0); Potassium 4.3 mmol/L (3.5-5.0)
[2023-02-08] MEDS: Pantoprazole VIAL 40 MG VIAL IV SCH ×2 (09:30→21:24)
[2023-02-08] MEDS: Insulin GLARGINE 100 un/ml 10 ml VIAL SUBCUT SCH ×3 (09:31→20:15)
[2023-02-08] MEDS: Aspirin EC 81 mg TAB.EC (enteric coated) PO SCH (12:59)
[2023-02-08 20:14] LABS: Calcium 8.7 mg/dL (8.6-10.3); Creatinine, Serum 3.96 mg/dL (0.67-1.17); Potassium 4.5 mmol/L (3.5-5.0); eGFR CKD-EPI 15.1 (>60)
[2023-02-08] MEDS: cefTRIAXone 1 gm/50 mL D5W 1 GM/50 ML BAG IV SCH (20:30)
[2023-02-09] MEDS: Heparin 5000 UNITS/ML 1 mL VIAL SUBCUT SCH ×3 (05:45→23:05)
[2023-02-09 06:40] LABS: ABS Lymphocytes 0.7 10^3/uL (1.0-4.8); ABS Monocytes 0.3 10^3/uL (0.0-1.1); ABS Neutrophils 9.5 10^3/uL (1.5-7.6); ABS Nucleated RBC 0.01 10^3/ul; Hematocrit 24.2 % (38-53); Hemoglobin 8.4 g/dL (13.2-16.3); Lymphocyte % 6.7 %; Mean Corpuscular Hemoglobin 28.7 pg (27-33); Mean Corpuscular Hgb Conc 34.6 g/dL (31-36); Mean Platelet Volume 7.9 fL (7.5-11.2); Nucleated Red Blood Cells % 0.1 %/100WBC (0.0-0.8); Platelet Count 212 10^3/uL (150-450); Red Blood Count 2.91 10^6/uL (4.06-5.63); Red Cell Distribution Width 16.2 % (12-17); White Blood Count 10.5 10^3/uL (3.6-10.2)
[2023-02-09] MEDS: Aspirin EC 81 mg TAB.EC (enteric coated) PO SCH (09:22)
[2023-02-09] MEDS: Pantoprazole VIAL 40 MG VIAL IV SCH (09:27)
[2023-02-09] MEDS: Insulin GLARGINE 100 un/ml 10 ml VIAL SUBCUT SCH ×2 (09:35→20:49)
[2023-02-09 10:23] LABS: Calcium 8.3 mg/dL (8.6-10.3); Creatinine, Serum 4.35 mg/dL (0.67-1.17); Phosphorus 5.1 mg/dL (2.5-5.0); Potassium 4.6 mmol/L (3.5-5.0); eGFR CKD-EPI 13.5 (>60)
[2023-02-09] MEDS ORDERED: Calcium Carb (TUMS) 500 mg CHEW TAB PO ONE (15:02)
[2023-02-09] MEDS: cefTRIAXone 1 gm/50 mL D5W 1 GM/50 ML BAG IV SCH (20:08)
[2023-02-09] MEDS ORDERED: Calcium Carb (TUMS) 500 mg CHEW TAB PO SCH (21:00)
[2023-02-10] MEDS: Heparin 5000 UNITS/ML 1 mL VIAL SUBCUT SCH ×2 (05:25→14:53)
[2023-02-10 07:08] LABS: Hematocrit 23.8 % (38-53); Mean Corpuscular Hgb Conc 33.8 g/dL (31-36); Mean Corpuscular Volume 82.8 fL (80-97); Mean Platelet Volume 7.6 fL (7.5-11.2); Platelet Count 240 10^3/uL (150-450); Red Blood Count 2.87 10^6/uL (4.06-5.63); White Blood Count 12.4 10^3/uL (3.6-10.2)
[2023-02-10 07:19] LABS: Calcium 8.3 mg/dL (8.6-10.3); Creatinine, Serum 4.73 mg/dL (0.67-1.17); Phosphorus 5.2 mg/dL (2.5-5.0); eGFR CKD-EPI 12.2 (>60)
[2023-02-10 08:15] LABS: ABS Lymphocytes 0.9 10^3/uL (1.0-4.8); ABS Neutrophils 10.4 10^3/uL (1.5-7.6); Lymphocyte % 7.6 %; RBC Morphology Normal (Normal); Smudge Cells Present
[2023-02-10] MEDS ORDERED: Lactated Ringers 1000 ml BAG 1,000 ML IV ONE (09:46)
[2023-02-10] MEDS: Insulin GLARGINE 100 un/ml 10 ml VIAL SUBCUT SCH ×2 (10:28→20:53)
[2023-02-10] MEDS: Aspirin EC 81 mg TAB.EC (enteric coated) PO SCH (10:32)
[2023-02-10] MEDS: Calcium Carb (TUMS) 500 mg CHEW TAB PO SCH ×3 (10:32→20:52)
[2023-02-10 16:25] LABS: Hematocrit 24.6 % (38-53); Hemoglobin 8.2 g/dL (13.2-16.3); Mean Corpuscular Hemoglobin 28.5 pg (27-33); Mean Corpuscular Hgb Conc 33.4 g/dL (31-36); Mean Corpuscular Volume 85.3 fL (80-97); Platelet Count 265 10^3/uL (150-450); Red Blood Count 2.89 10^6/uL (4.06-5.63); White Blood Count 14.3 10^3/uL (3.6-10.2)
[2023-02-10 16:51] LABS: ABS Eosinophils 0.2 10^3/uL (0.0-0.5); ABS Lymphocytes 0.7 10^3/uL (1.0-4.8); ABS Monocytes 0.6 10^3/uL (0.0-1.1); ABS Neutrophils 12.8 10^3/uL (1.5-7.6); ABS Nucleated RBC 0.01 10^3/ul; Eosinophil % 1.4 %; Lymphocyte % 4.9 %; Nucleated Red Blood Cells % 0.1 %/100WBC (0.0-0.8)
[2023-02-10 22:20] LABS: Hematocrit 21.5 % (38-53); Hemoglobin 7.3 g/dL (13.2-16.3); Mean Corpuscular Hemoglobin 28.4 pg (27-33); Mean Corpuscular Hgb Conc 34.1 g/dL (31-36); Mean Corpuscular Volume 83.1 fL (80-97); Mean Platelet Volume 7.6 fL (7.5-11.2); Platelet Count 240 10^3/uL (150-450); Red Blood Count 2.59 10^6/uL (4.06-5.63); Red Cell Distribution Width 15.9 % (12-17); White Blood Count 12.8 10^3/uL (3.6-10.2)
[2023-02-11 02:38] LABS: ABS Basophils 0.1 10^3/uL (0.0-0.1); ABS Lymphocytes 0.8 10^3/uL (1.0-4.8); ABS Monocytes 0.9 10^3/uL (0.0-1.1); ABS Neutrophils 11.1 10^3/uL (1.5-7.6); ABS Nucleated RBC 0.01 10^3/ul; Lymphocyte % 6.5 %; Nucleated Red Blood Cells % 0.1 %/100WBC (0.0-0.8)
[2023-02-11] MEDS: Calcium Carb (TUMS) 500 mg CHEW TAB PO SCH ×3 (07:55→21:45)
[2023-02-11] MEDS: Insulin GLARGINE 100 un/ml 10 ml VIAL SUBCUT SCH ×2 (07:56→21:56)
[2023-02-11 09:19] LABS: Hematocrit 21.6 % (38-53); Hemoglobin 7.2 g/dL (13.2-16.3); Mean Corpuscular Hemoglobin 28.2 pg (27-33); Mean Corpuscular Hgb Conc 33.5 g/dL (31-36); Mean Corpuscular Volume 84.2 fL (80-97); Mean Platelet Volume 7.8 fL (7.5-11.2); Platelet Count 252 10^3/uL (150-450); Red Blood Count 2.56 10^6/uL (4.06-5.63); Red Cell Distribution Width 16.2 % (12-17); White Blood Count 12.3 10^3/uL (3.6-10.2)
[2023-02-11 09:36] LABS: Calcium 8.4 mg/dL (8.6-10.3); Creatinine, Serum 4.79 mg/dL (0.67-1.17); Magnesium 2.1 mg/dL (1.9-2.7); Phosphorus 5.6 mg/dL (2.5-5.0); Potassium 4.1 mmol/L (3.5-5.0); eGFR CKD-EPI 12.1 (>60)
[2023-02-11 10:07] LABS: ABS Lymphocytes 0.9 10^3/uL (1.0-4.8); ABS Neutrophils 10.4 10^3/uL (1.5-7.6); ABS Nucleated RBC 0.01 10^3/ul; Anisocytosis 1+; Eosinophil % 0.2 %; Lymphocyte % 7.2 %; Nucleated Red Blood Cells % 0.1 %/100WBC (0.0-0.8); Polychromasia 1+
[2023-02-11 15:29] LABS: Hemoglobin 8.5 g/dL (13.2-16.3); Mean Corpuscular Hemoglobin 28.6 pg (27-33); Mean Corpuscular Hgb Conc 33.9 g/dL (31-36); Mean Corpuscular Volume 84.2 fL (80-97); Mean Platelet Volume 7.8 fL (7.5-11.2); Platelet Count 224 10^3/uL (150-450); Red Blood Count 2.97 10^6/uL (4.06-5.63); Red Cell Distribution Width 15.3 % (12-17); White Blood Count 11.3 10^3/uL (3.6-10.2)
[2023-02-11 15:49] LABS: ABS Lymphocytes 0.4 10^3/uL (1.0-4.8); ABS Monocytes 0.4 10^3/uL (0.0-1.1); ABS Neutrophils 10.4 10^3/uL (1.5-7.6); ABS Nucleated RBC 0.01 10^3/ul; Lymphocyte % 3.3 %; Nucleated Red Blood Cells % 0.1 %/100WBC (0.0-0.8)
[2023-02-11] MEDS: Bumetanide IV 0.25 MG/ML 4 ml VIAL (1 mg) IV SLOW PU SCH (21:46)
[2023-02-12 06:02] LABS: Hematocrit 23.1 % (38-53); Hemoglobin 7.9 g/dL (13.2-16.3); Mean Corpuscular Hemoglobin 28.9 pg (27-33); Mean Corpuscular Hgb Conc 34.4 g/dL (31-36); Mean Platelet Volume 7.8 fL (7.5-11.2); Platelet Count 219 10^3/uL (150-450); Red Blood Count 2.74 10^6/uL (4.06-5.63); Red Cell Distribution Width 15.7 % (12-17); White Blood Count 10.1 10^3/uL (3.6-10.2)
[2023-02-12 06:20] LABS: ABS Eosinophils 0.2 10^3/uL (0.0-0.5); ABS Monocytes 0.8 10^3/uL (0.0-1.1); ABS Neutrophils 8.2 10^3/uL (1.5-7.6); ABS Nucleated RBC 0.01 10^3/ul; Eosinophil % 1.9 %; Lymphocyte % 9.7 %; Nucleated Red Blood Cells % 0.1 %/100WBC (0.0-0.8)
[2023-02-12 06:21] LABS: Calcium 8.6 mg/dL (8.6-10.3); Creatinine, Serum 4.29 mg/dL (0.67-1.17); Magnesium 2.3 mg/dL (1.9-2.7); Potassium 4.2 mmol/L (3.5-5.0); eGFR CKD-EPI 13.8 (>60)
[2023-02-12] MEDS: Bumetanide IV 0.25 MG/ML 4 ml VIAL (1 mg) IV SLOW PU SCH ×2 (07:25→21:28)
[2023-02-12] MEDS: Calcium Carb (TUMS) 500 mg CHEW TAB PO SCH ×3 (07:25→20:55)
[2023-02-12] MEDS: Insulin GLARGINE 100 un/ml 10 ml VIAL SUBCUT SCH ×2 (07:26→20:58)
[2023-02-12 08:14] LABS: Albumin 3.3 g/dL (3.2-5.2); Albumin/Globulin Ratio 1.4 (1-3); Globulin 2.4 g/dL (2-4); Phosphorus 4.8 mg/dL (2.5-5.0); Total Bilirubin 0.5 mg/dL (0.2-1.0); Total Protein 5.7 g/dL (6.4-8.9)
[2023-02-12 09:34] LABS: Activated Partial Thrombo Time 27.1 seconds (26.0-38.0); INR 1.05 (0.83-1.13)
[2023-02-12 09:53] LABS: Hematocrit 22.7 % (38-53)
[2023-02-12 17:03] LABS: Hematocrit 22.3 % (38-53); Hemoglobin 7.7 g/dL (13.2-16.3)
[2023-02-13 01:21] LABS: ABS Basophils 0.1 10^3/uL (0.0-0.1); ABS Eosinophils 0.1 10^3/uL (0.0-0.5); ABS Lymphocytes 0.9 10^3/uL (1.0-4.8); ABS Monocytes 0.8 10^3/uL (0.0-1.1); ABS Neutrophils 10.3 10^3/uL (1.5-7.6); ABS Nucleated RBC 0.01 10^3/ul; Eosinophil % 1.1 %; Hematocrit 24.6 % (38-53); Hemoglobin 8.2 g/dL (13.2-16.3); Mean Corpuscular Hemoglobin 28.5 pg (27-33); Mean Corpuscular Hgb Conc 33.4 g/dL (31-36); Mean Corpuscular Volume 85.3 fL (80-97); Mean Platelet Volume 7.7 fL (7.5-11.2); Platelet Count 225 10^3/uL (150-450); Red Blood Count 2.88 10^6/uL (4.06-5.63); Red Cell Distribution Width 15.4 % (12-17); White Blood Count 12.2 10^3/uL (3.6-10.2)
[2023-02-13] MEDS: Insulin GLARGINE 100 un/ml 10 ml VIAL SUBCUT SCH ×2 (07:35→20:58)
[2023-02-13] MEDS: Calcium Carb (TUMS) 500 mg CHEW TAB PO SCH ×3 (07:36→20:58)
[2023-02-13 11:36] LABS: ABS Eosinophils 0.1 10^3/uL (0.0-0.5); ABS Lymphocytes 0.4 10^3/uL (1.0-4.8); ABS Monocytes 0.2 10^3/uL (0.0-1.1); ABS Neutrophils 12.3 10^3/uL (1.5-7.6); ABS Nucleated RBC 0.01 10^3/ul; Eosinophil % 0.7 %; Hematocrit 26.3 % (38-53); Hemoglobin 8.9 g/dL (13.2-16.3); Lymphocyte % 2.8 %; Mean Corpuscular Hemoglobin 28.9 pg (27-33); Mean Corpuscular Hgb Conc 33.9 g/dL (31-36); Mean Corpuscular Volume 85.4 fL (80-97); Mean Platelet Volume 7.7 fL (7.5-11.2); Platelet Count 240 10^3/uL (150-450); Red Blood Count 3.08 10^6/uL (4.06-5.63); Red Cell Distribution Width 15.9 % (12-17)
[2023-02-13 12:19] LABS: Calcium 8.6 mg/dL (8.6-10.3); Creatinine, Serum 3.82 mg/dL (0.67-1.17); Magnesium 2.1 mg/dL (1.9-2.7); Potassium 4.8 mmol/L (3.5-5.0); eGFR CKD-EPI 15.8 (>60)
[2023-02-14 07:22] LABS: ABS Eosinophils 0.3 10^3/uL (0.0-0.5); ABS Monocytes 0.7 10^3/uL (0.0-1.1); ABS Neutrophils 9.4 10^3/uL (1.5-7.6); Eosinophil % 2.9 %; Hematocrit 24.2 % (38-53); Hemoglobin 8.2 g/dL (13.2-16.3); Lymphocyte % 8.5 %; Mean Corpuscular Hemoglobin 28.9 pg (27-33); Mean Corpuscular Hgb Conc 33.8 g/dL (31-36); Mean Corpuscular Volume 85.5 fL (80-97); Mean Platelet Volume 7.6 fL (7.5-11.2); Platelet Count 228 10^3/uL (150-450); Red Blood Count 2.83 10^6/uL (4.06-5.63); Red Cell Distribution Width 15.9 % (12-17); White Blood Count 11.5 10^3/uL (3.6-10.2)
[2023-02-14 07:39] LABS: Calcium 8.4 mg/dL (8.6-10.3); Creatinine, Serum 4.34 mg/dL (0.67-1.17); Magnesium 2.1 mg/dL (1.9-2.7); Potassium 4.7 mmol/L (3.5-5.0); eGFR CKD-EPI 13.6 (>60)
[2023-02-14] MEDS: Insulin GLARGINE 100 un/ml 10 ml VIAL SUBCUT SCH ×2 (09:29→21:45)
[2023-02-14] MEDS: Bumetanide IV 0.25 MG/ML 4 ml VIAL (1 mg) IV SLOW PU SCH (09:29)
[2023-02-14] MEDS: Calcium Carb (TUMS) 500 mg CHEW TAB PO SCH ×3 (09:31→21:45)
[2023-02-14] MEDS ORDERED: Albumin Human 25% 25 GM/100 ML BTL IV PRN (10:26)
[2023-02-14] MEDS ORDERED: NS 0.9% 1000 ml BAG 200 ML IV PRN (10:26)
[2023-02-14] MEDS ORDERED: NS 0.9% 1000 ml BAG 100 ML IV PRN (10:26)
[2023-02-14] MEDS ORDERED: Heparin 1,000 UNIT/ML 10 ml (10,000 UNITS) CATHLAB/DIALYSIS ONE (12:40)
[2023-02-14] MEDS ORDERED: Lidocaine 1% MPF 5 ML VIAL ONE (12:40)
[2023-02-14] MEDS ORDERED: Heparin 2 UNITS/ML 1000 mls 1,000 ML IV ONE (12:40)
[2023-02-14 12:46] LABS: Hepatitis B Surface Ab Not Immune (Immune); Hepatitis C Antibody Negative (Negative)
[2023-02-14] MEDS: Heparin 1,000 UNIT/ML 10 ml (10,000 UNITS) CATHLAB/DIALYSIS DIALYSIS PRN ×2 (13:55→15:40)
[2023-02-15 06:34] LABS: Hematocrit 28.6 % (38-53); Hemoglobin 9.8 g/dL (13.2-16.3); Mean Corpuscular Hemoglobin 29.1 pg (27-33); Mean Corpuscular Hgb Conc 34.1 g/dL (31-36); Mean Corpuscular Volume 85.4 fL (80-97); Red Blood Count 3.35 10^6/uL (4.06-5.63)
[2023-02-15 07:28] LABS: ABS Basophils 0.1 10^3/uL (0.0-0.1); ABS Eosinophils 0.2 10^3/uL (0.0-0.5); ABS Lymphocytes 0.8 10^3/uL (1.0-4.8); ABS Monocytes 0.9 10^3/uL (0.0-1.1); Eosinophil % 1.5 %; Lymphocyte % 5.5 %; Mean Platelet Volume 7.9 fL (7.5-11.2); Platelet Count 267 10^3/uL (150-450)
[2023-02-15 08:01] LABS: Anion Gap 14 mmol/L (2-16); Blood Urea Nitrogen 73 mg/dL (6-24); CO2 Carbon Dioxide 20 mmol/L (22-32); Calcium 8.5 mg/dL (8.6-10.3); Chloride 102 mmol/L (101-111); Creatinine, Serum 3.32 mg/dL (0.67-1.17); Glucose 49 mg/dL (70-100); Magnesium 1.9 mg/dL (1.9-2.7); Sodium 136 mmol/L (135-145); eGFR CKD-EPI 18.7 (>60)
[2023-02-15] MEDS: Heparin 1,000 UNIT/ML 10 ml (10,000 UNITS) CATHLAB/DIALYSIS DIALYSIS PRN ×3 (08:15→10:30)
[2023-02-15 09:34] LABS: C Reactive Protein 8.78 mg/L (<8.01)
[2023-02-15] MEDS: Insulin GLARGINE 100 un/ml 10 ml VIAL SUBCUT SCH ×2 (10:03→20:33)
[2023-02-15 11:55] LABS: Hepatitis B Surface Antigen Nonreactive (Nonreactive)
[2023-02-15] MEDS: Bumetanide IV 0.25 MG/ML 4 ml VIAL (1 mg) IV SLOW PU SCH (12:08)
[2023-02-15] MEDS: Calcium Carb (TUMS) 500 mg CHEW TAB PO SCH ×3 (12:09→20:20)
[2023-02-16] MEDS: Heparin 1,000 UNIT/ML 10 ml (10,000 UNITS) CATHLAB/DIALYSIS DIALYSIS PRN ×3 (06:45→09:44)
[2023-02-16] MEDS: Bumetanide IV 0.25 MG/ML 4 ml VIAL (1 mg) IV SLOW PU SCH (10:29)
[2023-02-16] MEDS: Calcium Carb (TUMS) 500 mg CHEW TAB PO SCH ×3 (10:30→20:27)
[2023-02-16] MEDS: Insulin GLARGINE 100 un/ml 10 ml VIAL SUBCUT SCH ×2 (10:42→20:28)
[2023-02-16 11:43] LABS: Calcium 8.7 mg/dL (8.6-10.3); Creatinine, Serum 2.17 mg/dL (0.67-1.17); Magnesium 1.6 mg/dL (1.9-2.7); Potassium 3.6 mmol/L (3.5-5.0); eGFR CKD-EPI 31.2 (>60)
[2023-02-16] MEDS ORDERED: Magnesium Sulf 4 GM/100 ML IV 4,000 MG/100 ML BAG IVPB ONE (13:24)
[2023-02-16] MEDS ORDERED: Potassium Chlor 20 meq TAB.ER PO ONE (13:25)
[2023-02-16 14:20] LABS: ABS Basophils 0.1 10^3/uL (0.0-0.1); ABS Eosinophils 0.4 10^3/uL (0.0-0.5); ABS Lymphocytes 0.9 10^3/uL (1.0-4.8); ABS Monocytes 0.6 10^3/uL (0.0-1.1); ABS Neutrophils 7.4 10^3/uL (1.5-7.6); ABS Nucleated RBC 0.01 10^3/ul; Eosinophil % 3.9 %; Hematocrit 27.9 % (38-53); Hemoglobin 9.5 g/dL (13.2-16.3); Lymphocyte % 9.8 %; Mean Corpuscular Hemoglobin 28.9 pg (27-33); Mean Platelet Volume 8.2 fL (7.5-11.2); Nucleated Red Blood Cells % 0.1 %/100WBC (0.0-0.8); Platelet Count 268 10^3/uL (150-450); Red Blood Count 3.28 10^6/uL (4.06-5.63); Red Cell Distribution Width 16.1 % (12-17); White Blood Count 9.4 10^3/uL (3.6-10.2)
[2023-02-17 09:35] LABS: ABS Basophils 0.1 10^3/uL (0.0-0.1); ABS Eosinophils 0.4 10^3/uL (0.0-0.5); ABS Lymphocytes 0.8 10^3/uL (1.0-4.8); ABS Monocytes 0.6 10^3/uL (0.0-1.1); ABS Neutrophils 9.3 10^3/uL (1.5-7.6); Eosinophil % 3.5 %; Hematocrit 26.9 % (38-53); Hemoglobin 9.2 g/dL (13.2-16.3); Lymphocyte % 6.7 %; Mean Corpuscular Hemoglobin 29.1 pg (27-33); Mean Corpuscular Hgb Conc 34.1 g/dL (31-36); Mean Corpuscular Volume 85.3 fL (80-97); Mean Platelet Volume 7.9 fL (7.5-11.2); Platelet Count 242 10^3/uL (150-450); Red Blood Count 3.15 10^6/uL (4.06-5.63); Red Cell Distribution Width 16.2 % (12-17); White Blood Count 11.2 10^3/uL (3.6-10.2)
[2023-02-17 09:51] LABS: Albumin 3.3 g/dL (3.2-5.2); Albumin/Globulin Ratio 1.3 (1-3); Calcium 8.1 mg/dL (8.6-10.3); Creatinine, Serum 3.31 mg/dL (0.67-1.17); Globulin 2.5 g/dL (2-4); Magnesium 2.8 mg/dL (1.9-2.7); Phosphorus 3.4 mg/dL (2.5-5.0); Potassium 4.7 mmol/L (3.5-5.0); Total Bilirubin 0.7 mg/dL (0.2-1.0); Total Protein 5.8 g/dL (6.4-8.9); eGFR CKD-EPI 18.8 (>60)
[2023-02-17] MEDS: Bumetanide IV 0.25 MG/ML 4 ml VIAL (1 mg) IV SLOW PU SCH (10:28)
[2023-02-17] MEDS: Calcium Carb (TUMS) 500 mg CHEW TAB PO SCH ×3 (10:29→21:06)
[2023-02-17] MEDS: Insulin GLARGINE 100 un/ml 10 ml VIAL SUBCUT SCH ×2 (10:29→21:06)
[2023-02-18 06:56] LABS: ABS Basophils 0.1 10^3/uL (0.0-0.1); ABS Eosinophils 0.3 10^3/uL (0.0-0.5); ABS Lymphocytes 0.9 10^3/uL (1.0-4.8); ABS Monocytes 0.7 10^3/uL (0.0-1.1); ABS Neutrophils 7.2 10^3/uL (1.5-7.6); Eosinophil % 3.3 %; Hematocrit 24.8 % (38-53); Hemoglobin 8.5 g/dL (13.2-16.3); Lymphocyte % 9.7 %; Mean Corpuscular Hemoglobin 29.2 pg (27-33); Mean Corpuscular Volume 85.9 fL (80-97); Platelet Count 246 10^3/uL (150-450); Red Blood Count 2.89 10^6/uL (4.06-5.63); Red Cell Distribution Width 16.2 % (12-17); White Blood Count 9.2 10^3/uL (3.6-10.2)
[2023-02-18 07:09] LABS: Calcium 7.9 mg/dL (8.6-10.3); Creatinine, Serum 4.35 mg/dL (0.67-1.17); Magnesium 2.5 mg/dL (1.9-2.7); Potassium 4.6 mmol/L (3.5-5.0); eGFR CKD-EPI 13.5 (>60)
[2023-02-18] MEDS: Heparin 1,000 UNIT/ML 10 ml (10,000 UNITS) CATHLAB/DIALYSIS DIALYSIS PRN ×4 (08:08→12:00)
[2023-02-18] MEDS: Insulin GLARGINE 100 un/ml 10 ml VIAL SUBCUT SCH ×2 (13:29→20:21)
[2023-02-18] MEDS: Calcium Carb (TUMS) 500 mg CHEW TAB PO SCH ×3 (13:29→20:22)
[2023-02-18] MEDS: Bumetanide IV 0.25 MG/ML 4 ml VIAL (1 mg) IV SLOW PU SCH (13:30)
[2023-02-18] MEDS ORDERED: NS 0.9% 1000 ml BAG 200 ML IV PRN (13:41)
[2023-02-18] MEDS ORDERED: NS 0.9% 1000 ml BAG 100 ML IV PRN (13:41)
[2023-02-18] MEDS ORDERED: Albumin Human 25% 25 GM/100 ML BTL IV PRN (13:41)
[2023-02-19 06:15] LABS: ABS Basophils 0.1 10^3/uL (0.0-0.1); ABS Eosinophils 0.2 10^3/uL (0.0-0.5); ABS Lymphocytes 0.9 10^3/uL (1.0-4.8); ABS Monocytes 0.7 10^3/uL (0.0-1.1); ABS Nucleated RBC 0.01 10^3/ul; Eosinophil % 2.6 %; Hematocrit 27.1 % (38-53); Hemoglobin 9.3 g/dL (13.2-16.3); Lymphocyte % 11.3 %; Mean Corpuscular Hemoglobin 29.3 pg (27-33); Mean Corpuscular Hgb Conc 34.4 g/dL (31-36); Mean Corpuscular Volume 85.2 fL (80-97); Nucleated Red Blood Cells % 0.2 %/100WBC (0.0-0.8); Platelet Count 270 10^3/uL (150-450); Red Blood Count 3.18 10^6/uL (4.06-5.63); Red Cell Distribution Width 16.1 % (12-17)
[2023-02-19 06:28] LABS: Calcium 8.6 mg/dL (8.6-10.3); Creatinine, Serum 3.56 mg/dL (0.67-1.17); Potassium 4.5 mmol/L (3.5-5.0); eGFR CKD-EPI 17.2 (>60)
[2023-02-19] MEDS: Bumetanide IV 0.25 MG/ML 4 ml VIAL (1 mg) IV SLOW PU SCH (08:47)
[2023-02-19] MEDS: Calcium Carb (TUMS) 500 mg CHEW TAB PO SCH ×3 (08:48→21:52)
[2023-02-19] MEDS: Insulin GLARGINE 100 un/ml 10 ml VIAL SUBCUT SCH ×2 (08:51→21:51)
[2023-02-20 08:07] LABS: Calcium 8.5 mg/dL (8.6-10.3); Magnesium 2.1 mg/dL (1.9-2.7); Potassium 4.3 mmol/L (3.5-5.0)
[2023-02-20] MEDS: Heparin 1,000 UNIT/ML 10 ml (10,000 UNITS) CATHLAB/DIALYSIS DIALYSIS PRN ×6 (09:00→13:08)
[2023-02-20 13:13] VITALS: BP 160/93
[2023-02-20] MEDS: Calcium Carb (TUMS) 500 mg CHEW TAB PO SCH ×2 (13:24)
[2023-02-20] MEDS: Bumetanide IV 0.25 MG/ML 4 ml VIAL (1 mg) IV SLOW PU SCH (13:24)
[2023-02-20] MEDS: Insulin GLARGINE 100 un/ml 10 ml VIAL SUBCUT SCH (13:24)
== END 2023-02-20 14:30 | disposition home or self-care (01) | DRG 193 ==
LOC: ED 18:00 → EDHOLD 20:04 → SUATTDRO 20:04 → MED 22:06 → MEDTELE 02-07 13:10 → MED 02-18 06:13
PROVIDERS: ADMIT Hospitalist; ATTEND Hospitalist

== ENCOUNTER 2023-02-23 20:44 | Inpatient (IN) ==
[2023-02-23] MEDS ORDERED: Lactated Ringers 1000 ml BAG 1,000 ML IV ONE (20:58)
[2023-02-23] MEDS ORDERED: Ondansetron 4 mg VIAL 2 MG/ML 2 ml VIAL IV ONE (20:58)
[2023-02-23] MEDS ORDERED: Morphine 4 MG/ML VIAL (1 ml) IV ONE (21:00)
[2023-02-23 21:29] LABS: ABS Basophils 0.1 10^3/uL (0.0-0.1); ABS Eosinophils 0.1 10^3/uL (0.0-0.5); ABS Monocytes 0.6 10^3/uL (0.0-1.1); ABS Neutrophils 6.7 10^3/uL (1.5-7.6); ABS Nucleated RBC 0.01 10^3/ul; Eosinophil % 1.7 %; Hematocrit 27.3 % (38-53); Hemoglobin 9.4 g/dL (13.2-16.3); Lymphocyte % 12.1 %; Mean Corpuscular Hemoglobin 29.4 pg (27-33); Mean Corpuscular Hgb Conc 34.4 g/dL (31-36); Mean Corpuscular Volume 85.2 fL (80-97); Nucleated Red Blood Cells % 0.1 %/100WBC (0.0-0.8); Platelet Count 278 10^3/uL (150-450); Red Blood Count 3.21 10^6/uL (4.06-5.63); Red Cell Distribution Width 16.7 % (12-17); White Blood Count 8.5 10^3/uL (3.6-10.2)
[2023-02-23] MEDS ORDERED: fentaNYL 100 mcg/2 ml 50 MCG/ML VIAL IV SLOW PU ONE (21:31)
[2023-02-23 21:47] LABS: Albumin 3.8 g/dL (3.2-5.2); Albumin/Globulin Ratio 1.5 (1-3); C Reactive Protein 10.7 mg/L (<8.01); Calcium 8.8 mg/dL (8.6-10.3); Creatinine, Serum 3.23 mg/dL (0.67-1.17); Globulin 2.6 g/dL (2-4); Total Bilirubin 1.1 mg/dL (0.2-1.0); Total Protein 6.4 g/dL (6.4-8.9); eGFR CKD-EPI 19.3 (>60)
[2023-02-23 21:49] LABS: INR 1.01 (0.83-1.13)
[2023-02-23] MEDS ORDERED: Iodixanol (CONTRAST) 320 MG/ML 100 ML SDV IV ONE (21:58)
[2023-02-23] MEDS ORDERED: NS 0.9% 500 ml BAG 500 ML IV SCH (22:00)
[2023-02-23] MEDS ORDERED: Lactated Ringers 1000 ml BAG 1,000 ML IV SCH (22:00)
[2023-02-23] MEDS ORDERED: Cefepime 2 GM in Dextrose 2 GM/50 ML BAG IV ONE (22:07)
[2023-02-24] MEDS ORDERED: Ondansetron 4 mg VIAL 2 MG/ML 2 ml VIAL IV PRN (01:22)
[2023-02-24] MEDS ORDERED: HYDROmorphone 0.5 MG/0.5 ML SYRINGE IV SLOW PU PRN (01:38)
[2023-02-24] MEDS ORDERED: HYDROmorphone 1 MG/1 ML SYRINGE IV SLOW PU PRN (01:39)
[2023-02-24] MEDS ORDERED: Dextrose 50% Syringe 50 ml 25 GM/50 ML SYRINGE IV PUSH PRN (01:41)
[2023-02-24] MEDS: Acetaminophen IV 1 GM/100ML 1,000 MG/100 ML BAG IV SCH ×3 (06:07→21:55)
[2023-02-24] MEDS: Polyethylene Glycol 3350 17 GM PACKET PO SCH (08:05)
[2023-02-24 08:53] LABS: ABS Basophils 0.1 10^3/uL (0.0-0.1); ABS Eosinophils 0.2 10^3/uL (0.0-0.5); ABS Lymphocytes 0.8 10^3/uL (1.0-4.8); ABS Monocytes 0.6 10^3/uL (0.0-1.1); ABS Neutrophils 4.2 10^3/uL (1.5-7.6); ABS Nucleated RBC 0.02 10^3/ul; Eosinophil % 3.5 %; Hematocrit 26.3 % (38-53); Hemoglobin 8.2 g/dL (13.2-16.3); Lymphocyte % 13.3 %; Mean Corpuscular Hgb Conc 31.4 g/dL (31-36); Mean Corpuscular Volume 95.5 fL (80-97); Mean Platelet Volume 7.7 fL (7.5-11.2); Nucleated Red Blood Cells % 0.4 %/100WBC (0.0-0.8); Platelet Count 187 10^3/uL (150-450); Red Blood Count 2.75 10^6/uL (4.06-5.63); Red Cell Distribution Width 17.8 % (12-17); White Blood Count 5.9 10^3/uL (3.6-10.2)
[2023-02-24 09:09] LABS: Albumin 3.1 g/dL (3.2-5.2); Albumin/Globulin Ratio 1.4 (1-3); Calcium 7.8 mg/dL (8.6-10.3); Creatinine, Serum 3.7 mg/dL (0.67-1.17); Globulin 2.2 g/dL (2-4); Potassium 4.3 mmol/L (3.5-5.0); Total Bilirubin 0.9 mg/dL (0.2-1.0); Total Protein 5.3 g/dL (6.4-8.9); eGFR CKD-EPI 16.4 (>60)
[2023-02-24 10:42] LABS: .Transferrin 213 mg/dL (203-362); Total Iron Binding Capacity 298 mcg/dL (250-450)
[2023-02-24 14:43] LABS: Hematocrit 21.6 % (38-53); Hemoglobin 7.5 g/dL (13.2-16.3)
[2023-02-24] MEDS: Senna TAB 8.6 mg TAB PO SCH (21:50)
[2023-02-25 00:09] LABS: Hematocrit 20.3 % (38-53); Hemoglobin 7.1 g/dL (13.2-16.3)
[2023-02-25] MEDS: Acetaminophen IV 1 GM/100ML 1,000 MG/100 ML BAG IV SCH ×3 (05:34→22:16)
[2023-02-25 06:23] LABS: ABS Basophils 0.1 10^3/uL (0.0-0.1); ABS Eosinophils 0.3 10^3/uL (0.0-0.5); ABS Lymphocytes 0.8 10^3/uL (1.0-4.8); ABS Monocytes 0.4 10^3/uL (0.0-1.1); ABS Nucleated RBC 0.01 10^3/ul; Eosinophil % 5.2 %; Hemoglobin 7.5 g/dL (13.2-16.3); Lymphocyte % 14.5 %; Mean Corpuscular Hemoglobin 29.6 pg (27-33); Mean Corpuscular Hgb Conc 34.2 g/dL (31-36); Mean Corpuscular Volume 86.6 fL (80-97); Mean Platelet Volume 7.9 fL (7.5-11.2); Nucleated Red Blood Cells % 0.1 %/100WBC (0.0-0.8); Platelet Count 158 10^3/uL (150-450); Red Blood Count 2.54 10^6/uL (4.06-5.63); Red Cell Distribution Width 16.9 % (12-17); White Blood Count 5.7 10^3/uL (3.6-10.2)
[2023-02-25 06:27] LABS: INR 1.05 (0.83-1.13)
[2023-02-25 06:42] LABS: Albumin/Globulin Ratio 1.5 (1-3); Calcium 7.9 mg/dL (8.6-10.3); Creatinine, Serum 4.6 mg/dL (0.67-1.17); Magnesium 1.7 mg/dL (1.9-2.7); Potassium 3.9 mmol/L (3.5-5.0); eGFR CKD-EPI 12.7 (>60)
[2023-02-25] MEDS: Polyethylene Glycol 3350 17 GM PACKET PO SCH (07:53)
[2023-02-25] MEDS: Senna TAB 8.6 mg TAB PO SCH (21:10)
[2023-02-26 06:28] LABS: ABS Basophils 0.1 10^3/uL (0.0-0.1); ABS Eosinophils 0.3 10^3/uL (0.0-0.5); ABS Lymphocytes 0.9 10^3/uL (1.0-4.8); ABS Monocytes 0.4 10^3/uL (0.0-1.1); ABS Neutrophils 4.2 10^3/uL (1.5-7.6); Eosinophil % 4.5 %; Hematocrit 20.7 % (38-53); Hemoglobin 7.2 g/dL (13.2-16.3); Lymphocyte % 14.8 %; Mean Corpuscular Hemoglobin 29.7 pg (27-33); Mean Corpuscular Hgb Conc 34.6 g/dL (31-36); Mean Platelet Volume 7.6 fL (7.5-11.2); Nucleated Red Blood Cells % 0.1 %/100WBC (0.0-0.8); Platelet Count 157 10^3/uL (150-450); Red Blood Count 2.41 10^6/uL (4.06-5.63); Red Cell Distribution Width 17.1 % (12-17); White Blood Count 5.8 10^3/uL (3.6-10.2)
[2023-02-26] MEDS: Acetaminophen IV 1 GM/100ML 1,000 MG/100 ML BAG IV SCH ×2 (06:42→13:54)
[2023-02-26 06:49] LABS: Calcium 7.6 mg/dL (8.6-10.3); Creatinine, Serum 5.78 mg/dL (0.67-1.17); Potassium 4.7 mmol/L (3.5-5.0); eGFR CKD-EPI 9.6 (>60)
[2023-02-26] MEDS ORDERED: Albumin Human 25% 25 GM/100 ML BTL IV PRN (08:05)
[2023-02-26] MEDS: Polyethylene Glycol 3350 17 GM PACKET PO SCH (08:22)
[2023-02-26] MEDS: Heparin 1,000 UNIT/ML 10 ml (10,000 UNITS) CATHLAB/DIALYSIS DIALYSIS PRN ×4 (09:15→12:30)
[2023-02-26 15:13] VITALS: BP 144/61
== END 2023-02-26 18:00 | disposition home or self-care (01) | DRG 871 ==
LOC: ED 20:44 → SUATTDRO 02-24 01:22 → EDHOLD 02-24 01:22 → MEDTELE 02-24 02:34
PROVIDERS: ADMIT Internal Medicine; ATTEND Family Medicine

== ENCOUNTER 2023-06-20 08:34 | Inpatient (IN) ==
[2023-06-20 09:15] LABS: ABS Basophils 0.1 10^3/uL (0.0-0.1); ABS Eosinophils 0.2 10^3/uL (0.0-0.5); ABS Lymphocytes 0.7 10^3/uL (1.0-4.8); ABS Monocytes 0.4 10^3/uL (0.0-1.1); ABS Neutrophils 6.7 10^3/uL (1.5-7.6); ABS Nucleated RBC 0.01 10^3/ul; Eosinophil % 2.5 %; Hemoglobin 10.3 g/dL (13.2-16.3); Lymphocyte % 8.8 %; Mean Corpuscular Hemoglobin 28.7 pg (27-33); Mean Corpuscular Hgb Conc 33.2 g/dL (31-36); Mean Corpuscular Volume 86.3 fL (80-97); Mean Platelet Volume 7.8 fL (7.5-11.2); Nucleated Red Blood Cells % 0.1 %/100WBC (0.0-0.8); Platelet Count 287 10^3/uL (150-450); Red Blood Count 3.59 10^6/uL (4.06-5.63); Red Cell Distribution Width 17.9 % (12-17); White Blood Count 8.1 10^3/uL (3.6-10.2)
[2023-06-20 09:19] LABS: INR 1.13 (0.83-1.13)
[2023-06-20] MEDS: Magnesium Sulfate 2 gm BAG 2 GM/50 ML BAG IVPB ONE (09:31)
[2023-06-20] MEDS ORDERED: .Amiodarone 24HR ONLY IV Protocol Order Note IV ONE (09:31)
[2023-06-20] MEDS: NS 0.9% 1000 ml BAG 1,000 ML IV ONE (09:32)
[2023-06-20] MEDS: Amiodarone 150 mg IVPREMIX 150 MG/100 ML BAG IV ONE (09:34)
[2023-06-20 10:02] LABS: Albumin 3.6 g/dL (3.2-5.2); Albumin/Globulin Ratio 1.4 (1-3); Creatinine, Serum 2.27 mg/dL (0.67-1.17); Globulin 2.5 g/dL (2-4); Total Protein 6.1 g/dL (6.4-8.9); eGFR CKD-EPI 29.5 (>60)
[2023-06-20 10:03] LABS: Magnesium 1.9 mg/dL (1.9-2.7); Phosphorus 1.6 mg/dL (2.5-5.0)
[2023-06-20 10:16] LABS: TSH Ultra Thyroid Stim Horm 1.43 mcIU/mL (0.34-5.60)
[2023-06-20 10:19] LABS: High Sensitivity Troponin 1 Hr 30 pg/mL (<20)
[2023-06-20] MEDS: Amiodarone 360 MG IVPREMIX 360 MG/200 ML BAG IV SCH ×3 (12:42→18:22)
[2023-06-20] MEDS: Potassium & Sodium Phos 250 mg = 1 PACKET PO SCH (15:46)
[2023-06-20] MEDS: Lidocaine PATCH 4% TOPICAL SCH (16:20)
[2023-06-20] MEDS ORDERED: Albumin Human 25% 25 GM/100 ML BTL IV PRN (16:39)
[2023-06-20] MEDS ORDERED: NS 0.9% 1000 ml BAG 200 ML IV PRN (16:39)
[2023-06-20] MEDS ORDERED: NS 0.9% 1000 ml BAG 100 ML IV PRN (16:39)
[2023-06-20 18:41] LABS: Hepatitis B Surface Antigen Nonreactive (Nonreactive)
[2023-06-20 18:58] LABS: Hepatitis B Surface Ab Not Immune (Immune)
[2023-06-20] MEDS: Senna TAB 8.6 mg TAB PO SCH (20:45)
[2023-06-20] MEDS: Heparin 5000 UNITS/ML 1 mL VIAL SUBCUT SCH (20:46)
[2023-06-20] MEDS: Insulin GLARGINE 100 un/ml 10 ml VIAL SUBCUT SCH (20:50)
[2023-06-21 04:45] LABS: ABS Basophils 0.1 10^3/uL (0.0-0.1); ABS Eosinophils 0.3 10^3/uL (0.0-0.5); ABS Lymphocytes 0.9 10^3/uL (1.0-4.8); ABS Monocytes 0.4 10^3/uL (0.0-1.1); ABS Neutrophils 4.9 10^3/uL (1.5-7.6); Hematocrit 24.5 % (38-53); Hemoglobin 8.3 g/dL (13.2-16.3); Mean Corpuscular Hemoglobin 29.2 pg (27-33); Mean Corpuscular Hgb Conc 33.9 g/dL (31-36); Mean Corpuscular Volume 86.1 fL (80-97); Mean Platelet Volume 7.6 fL (7.5-11.2); Nucleated Red Blood Cells % 0.1 %/100WBC (0.0-0.8); Platelet Count 240 10^3/uL (150-450); Red Blood Count 2.84 10^6/uL (4.06-5.63); White Blood Count 6.6 10^3/uL (3.6-10.2)
[2023-06-21 05:11] LABS: Calcium 8.1 mg/dL (8.6-10.3); Creatinine, Serum 2.83 mg/dL (0.67-1.17); Magnesium 2.3 mg/dL (1.9-2.7); Potassium 4.3 mmol/L (3.5-5.0); eGFR CKD-EPI 22.7 (>60)
[2023-06-21 05:31] LABS: Urine Appearance Clear; Urine Bilirubin Negative (Negative); Urine Blood 1+ (Negative); Urine Color Yellow; Urine Glucose Trace (Negative); Urine Ketones Negative (Negative); Urine Nitrite Negative (Negative); Urine Protein 3+ (>=300 mg/dL) (Negative); Urine Specific Gravity 1.017 (1.002-1.030); Urine Urobilinogen Negative (Negative); Urine pH 6.5 (5.0-8.0)
[2023-06-21 05:40] LABS: Urine Bacteria Absent /HPF (Absent); Urine Red Blood Cell 1+(3-5/hpf) /HPF (0-Trace); Urine White Blood Cell 2+(11-20/hpf) /HPF (0-Trace)
[2023-06-21 07:58] LABS: Phosphorus 3.9 mg/dL (2.5-5.0)
[2023-06-21] MEDS: Heparin 1,000 UNIT/ML 10 ml (10,000 UNITS) CATHLAB/DIALYSIS DIALYSIS PRN (08:24)
[2023-06-21] MEDS: Amiodarone 400 mg TAB PO SCH (19:55)
[2023-06-22 12:21] LABS: ABS Eosinophils 0.2 10^3/uL (0.0-0.5); ABS Lymphocytes 0.7 10^3/uL (1.0-4.8); ABS Monocytes 0.5 10^3/uL (0.0-1.1); ABS Neutrophils 5.7 10^3/uL (1.5-7.6); ABS Nucleated RBC 0.01 10^3/ul; Eosinophil % 3.2 %; Hematocrit 25.2 % (38-53); Hemoglobin 8.5 g/dL (13.2-16.3); Lymphocyte % 9.8 %; Mean Corpuscular Hemoglobin 29.4 pg (27-33); Mean Corpuscular Hgb Conc 33.9 g/dL (31-36); Mean Corpuscular Volume 86.7 fL (80-97); Mean Platelet Volume 8.2 fL (7.5-11.2); Nucleated Red Blood Cells % 0.1 %/100WBC (0.0-0.8); Platelet Count 241 10^3/uL (150-450); Red Blood Count 2.91 10^6/uL (4.06-5.63); Red Cell Distribution Width 18.4 % (12-17); White Blood Count 7.2 10^3/uL (3.6-10.2)
[2023-06-22 14:03] LABS: Calcium 8.4 mg/dL (8.6-10.3); Creatinine, Serum 2.53 mg/dL (0.67-1.17); Magnesium 1.8 mg/dL (1.9-2.7); Phosphorus 3.6 mg/dL (2.5-5.0); Potassium 4.2 mmol/L (3.5-5.0); eGFR CKD-EPI 25.9 (>60)
[2023-06-22] MEDS: Insulin GLARGINE 100 un/ml 10 ml VIAL SUBCUT SCH (21:37)
[2023-06-23] MEDS: Lidocaine 2% JELLY 6 ML Topical TOPICAL ONE (00:18)
[2023-06-23 05:42] LABS: ABS Basophils 0.2 10^3/uL (0.0-0.1); ABS Eosinophils 0.2 10^3/uL (0.0-0.5); ABS Monocytes 0.6 10^3/uL (0.0-1.1); ABS Neutrophils 5.2 10^3/uL (1.5-7.6); Eosinophil % 3.4 %; Hematocrit 24.4 % (38-53); Hemoglobin 8.3 g/dL (13.2-16.3); Lymphocyte % 14.3 %; Mean Corpuscular Hemoglobin 29.5 pg (27-33); Mean Corpuscular Hgb Conc 34.1 g/dL (31-36); Mean Corpuscular Volume 86.3 fL (80-97); Mean Platelet Volume 8.2 fL (7.5-11.2); Platelet Count 235 10^3/uL (150-450); Red Blood Count 2.82 10^6/uL (4.06-5.63); Red Cell Distribution Width 18.6 % (12-17); White Blood Count 7.2 10^3/uL (3.6-10.2)
[2023-06-23 05:56] LABS: Calcium 8.4 mg/dL (8.6-10.3); Creatinine, Serum 3.14 mg/dL (0.67-1.17); Magnesium 1.8 mg/dL (1.9-2.7); Potassium 4.2 mmol/L (3.5-5.0)
[2023-06-23] MEDS: Magnesium Sulfate 2 gm BAG 2 GM/50 ML BAG IVPB ONE (08:47)
[2023-06-24 06:29] LABS: ABS Basophils 0.1 10^3/uL (0.0-0.1); ABS Eosinophils 0.3 10^3/uL (0.0-0.5); ABS Lymphocytes 0.9 10^3/uL (1.0-4.8); ABS Monocytes 0.5 10^3/uL (0.0-1.1); ABS Neutrophils 4.8 10^3/uL (1.5-7.6); Eosinophil % 4.1 %; Hematocrit 26.4 % (38-53); Hemoglobin 8.7 g/dL (13.2-16.3); Lymphocyte % 14.2 %; Mean Corpuscular Hemoglobin 28.8 pg (27-33); Mean Corpuscular Hgb Conc 33.1 g/dL (31-36); Mean Corpuscular Volume 87.2 fL (80-97); Mean Platelet Volume 8.1 fL (7.5-11.2); Platelet Count 242 10^3/uL (150-450); Red Blood Count 3.02 10^6/uL (4.06-5.63); Red Cell Distribution Width 18.2 % (12-17); White Blood Count 6.6 10^3/uL (3.6-10.2)
[2023-06-24 06:47] LABS: Calcium 8.6 mg/dL (8.6-10.3); Creatinine, Serum 3.63 mg/dL (0.67-1.17); Magnesium 2.5 mg/dL (1.9-2.7); Phosphorus 4.6 mg/dL (2.5-5.0); Potassium 4.3 mmol/L (3.5-5.0); eGFR CKD-EPI 16.8 (>60)
[2023-06-24] MEDS ORDERED: Regadenoson 0.4 MG/5 ML SYRINGE ONE (08:07)
[2023-06-24] MEDS ORDERED: Aminophylline 25 MG/ML VIAL ONE (08:08)
[2023-06-25] MEDS: Benzocaine/Menthol LOZ MT PRN (05:09)
[2023-06-25 05:34] LABS: ABS Basophils 0.1 10^3/uL (0.0-0.1); ABS Eosinophils 0.2 10^3/uL (0.0-0.5); ABS Lymphocytes 0.6 10^3/uL (1.0-4.8); ABS Monocytes 0.6 10^3/uL (0.0-1.1); ABS Neutrophils 6.9 10^3/uL (1.5-7.6); ABS Nucleated RBC 0.01 10^3/ul; Eosinophil % 2.4 %; Hematocrit 26.3 % (38-53); Hemoglobin 8.8 g/dL (13.2-16.3); Lymphocyte % 7.5 %; Mean Corpuscular Hgb Conc 33.3 g/dL (31-36); Mean Platelet Volume 7.8 fL (7.5-11.2); Nucleated Red Blood Cells % 0.1 %/100WBC (0.0-0.8); Platelet Count 254 10^3/uL (150-450); Red Blood Count 3.02 10^6/uL (4.06-5.63); Red Cell Distribution Width 18.9 % (12-17); White Blood Count 8.4 10^3/uL (3.6-10.2)
[2023-06-25 05:51] LABS: Calcium 8.4 mg/dL (8.6-10.3); Creatinine, Serum 2.49 mg/dL (0.67-1.17); Potassium 3.9 mmol/L (3.5-5.0); eGFR CKD-EPI 26.4 (>60)
[2023-06-25] MEDS ORDERED: Heparin 1,000 UNIT/ML 10 ml (10,000 UNITS) CATHLAB/DIALYSIS ONE (11:36)
[2023-06-25] MEDS ORDERED: fentaNYL 100 mcg/2 ml 50 MCG/ML VIAL ONE (11:36)
[2023-06-25] MEDS ORDERED: Midazolam 5 mg/5 ml VIAL 1 mg/ml 5 ml VIAL (5 mg) ONE (11:36)
[2023-06-25] MEDS ORDERED: VERAPAMIL 2.5 MG/ML 2 ML VIAL ** 5 mg/2 ml ONE (11:36)
[2023-06-25] MEDS ORDERED: nitroGLYCERIN DRIP 0 MCG/0 ML BTL ONE (11:37)
[2023-06-25] MEDS ORDERED: Lidocaine 1% MPF 5 ML VIAL ONE (11:37)
[2023-06-25] MEDS: Clindamycin 600 MG/NS BAG IV ONE (12:49)
[2023-06-26 08:34] LABS: ABS Eosinophils 0.2 10^3/uL (0.0-0.5); ABS Lymphocytes 0.5 10^3/uL (1.0-4.8); ABS Monocytes 0.6 10^3/uL (0.0-1.1); ABS Neutrophils 7.7 10^3/uL (1.5-7.6); Eosinophil % 2.5 %; Hematocrit 26.3 % (38-53); Hemoglobin 8.8 g/dL (13.2-16.3); Lymphocyte % 5.6 %; Mean Corpuscular Hemoglobin 29.5 pg (27-33); Mean Corpuscular Hgb Conc 33.7 g/dL (31-36); Mean Corpuscular Volume 87.6 fL (80-97); Mean Platelet Volume 7.8 fL (7.5-11.2); Platelet Count 243 10^3/uL (150-450); Red Cell Distribution Width 19.4 % (12-17); White Blood Count 9.1 10^3/uL (3.6-10.2)
[2023-06-26 09:25] LABS: Calcium 8.5 mg/dL (8.6-10.3); Creatinine, Serum 3.24 mg/dL (0.67-1.17); Potassium 4.2 mmol/L (3.5-5.0); eGFR CKD-EPI 19.3 (>60)
[2023-06-26 12:45] VITALS: BP 147/51
[2023-06-26 13:20] LABS: Rapid COVID-19 Molecular Undetected (Undetected)
== END 2023-06-26 16:12 | DRG 252 ==
LOC: ED 08:34 → EDHOLD 10:28 → SUATTDRO 10:28 → ICU 12:44 → MEDTELE 13:20
PROVIDERS: ADMIT Internal Medicine Critical Care Medicine; ATTEND Student in an Organized Health Care Education/Training Program
PROC: ANG.PRO (2023-06-25 11:00)